=== PATIENT | female | born 1960 | race Caucasian/White ===

== ENCOUNTER 2018-06-16 06:44 | Emergency (ER) | payer BC ==
--- NOTE | 2018-06-16 07:40 | ER ---
Nurse's Notes [facility] Name: Yoly Vanessa Age: 58 yrs Sex: Female : 1960 Arrival Date: 06/16/2018 Time: 06:56 Bed 5 Private MD: Diagnosis: Radiculopathy, cervical region Presentation: 06/16 07:08 Presenting complaint: Patient states: L shoulder pain that began 1.5 weeks ago. Denies ss injury. Pt states, "I've had an upper respiratory infection, and I think I pulled something from coughing, I don't know, but the muscle relaxer and steroids are not working." ROM and CMS intact. Transition of care: patient was not received from another setting of care. Onset of symptoms was June 05, 2018. Risk Assessment: Do you want to hurt yourself or someone else? Patient reports no desire to harm self or others. Initial Sepsis Screen: Does the patient meet any 2 criteria? No. Patient's initial sepsis screen is negative. Does the patient have a suspected source of infection? No. Patient's initial sepsis screen is negative. Note Pt reports that pain is aggravated by cold weather. Care prior to arrival: None. 07:08 Method Of Arrival: Ambulatory ss 07:08 Acuity: MEHDI 3 ss Historical: - Allergies: 07:10 No Known Allergies; ss - PMHx: 07:10 COPD; Diabetes - IDDM; ss - PSHx: 07:10 Cholecystectomy; Pt believes her appendix may have been removed, but is unsure; ss - Immunization history:: Adult Immunizations unknown, Flu vaccine is not up to date. - Social history:: Smoking status: Patient uses tobacco products, smokes one pack cigarettes per day. - Ebola Screening: : Patient denies exposure to infectious person Patient denies travel to an Ebola-affected area in the 21 days before illness onset. Screenin:17 Abuse screen: Denies threats or abuse. Nutritional screening: No deficits noted. ca1 Tuberculosis screening: No symptoms or risk factors identified. Fall Risk None identified. Assessment: 07:16 General: Appears in no apparent distress. comfortable, Behavior is calm, cooperative. ca1 07:16 Pain: Complains of pain in left shoulder Pain does not radiate. Pain currently is 10 ca1 out of 10 on a pain scale. Quality of pain is described as throbbing, Pain began 1.5 days ago. Is continuous. 07:16 Neuro: Level of Consciousness is awake, alert, obeys commands, Oriented to person, ca1 place, time, situation. Cardiovascular: Heart tones S1 S2 present. Respiratory: Airway is patent Trachea midline Respiratory effort is even, unlabored, Respiratory pattern is regular, symmetrical, Breath sounds are clear bilaterally. GI: Abdomen is round Bowel sounds present X 4 quads. Abd is soft and non tender X 4 quads. : No signs and/or symptoms were reported regarding the genitourinary system. EENT:. Derm: Skin is pink, warm \\T\\ dry. 08:02 Reassessment: Patient and/or family updated on plan of care and expected duration. Pain ca1 level reassessed. Patient is alert, oriented x 3, equal unlabored respirations, skin warm/dry/pink. Reassessment: Patient appears in no apparent distress at this time. Patient still complains of pain and states, "I still feel a throbbing pain at my left shoulder, the medication provided a little relief but I can still feel the pain". . Vital Signs: 07:10 BP 132 / 62; Pulse 66; Resp 17; Temp 97.9(O); Pulse Ox 98% on R/A; Weight 81.65 kg; ss Height 5 ft. 4 in. (162.56 cm); Pain 10/10; 07:54 BP 128 / 105; Pulse 70; Resp 19; Pulse Ox 96% on R/A; Pain 10/10; ca1 07:10 Body Mass Index 30.90 (81.65 kg, 162.56 cm) ED Course: 06:56 Patient arrived in ED. ag3 07:00 Maye Dasilva FNP-C is PHCP. snw 07:00 Jose Bolaños MD is Attending Physician. snw 07:10 Triage completed. ss 07:10 Arm band placed on right wrist. ss 07:20 Bed in low position. Call light in reach. ca1 08:06 Jennifer Taylor, RN is Primary Nurse. ca1 08:07 No provider procedures requiring assistance completed. Patient did not have IV access ca1 during this emergency room visit. Administered Medications: 07:45 Drug: fentaNYL (PF) 50 mcg Route: IM; Site: right deltoid; ca1 08:26 Follow up: Response: No adverse reaction ca1 07:46 Drug: Neurontin 300 mg Route: PO; ca1 08:26 Follow up: Response: No adverse reaction ca1 Outcome: 07:39 Discharge ordered by MD. mosquera 08:05 Discharged to home ambulatory. ca1 08:05 Condition: stable 08:05 Discharge instructions given to patient, Instructed on discharge instructions, follow up and referral plans. medication usage, Demonstrated understanding of instructions, follow-up care, medications, Prescriptions given X 1. 08:33 Patient left the ED. ca1 Signatures: Maye Dasilva, FACILITIES FLIGHT CHECK PILOT-C FACILITIES FLIGHT CHECK PILOT-Csnw Jennifer Simpson, MOJGAN RN ss Ella Arthur ag3 Jennifer Taylor RN RN ca1 Corrections: (The following items were deleted from the chart) 08:05 07:16 Pain: ca1 ca1 08:06 07:16 Pain: Complains of pain in left shoulder Pain does not radiate. Pain currently is ca1 10 out of 10 on a pain scale. Quality of pain is described as throbbing, Pain began 1.5 days ago. Is continuous, ca1
--- NOTE | 2018-06-16 07:40 | EDPHYS ---
Physician Documentation [facility] Name: Yoly Vanessa Age: 58 yrs Sex: Female : 1960 Arrival Date: 06/16/2018 Time: 06:56 Bed 5 Private MD: ED Physician Jose Bolaños HPI: 06/16 07:36 This 58 yrs old Female presents to ER via Ambulatory with complaints of snw Shoulder Pain. 07:36 The patient or guardian complains of pain, that is acute. left shoulder with shooting, snw burning pain in left elbow. Context: The problem was sustained at an unknown site, resulted from an unknown reason, The patient reports no decreased range of motion. The patient reports no obvious deformity. Onset: The symptoms/episode began/occurred gradually, 3 week(s) ago, and became worse and became persistent. Associated signs and symptoms: Pertinent positives: burning. Severity of symptoms: At their worst the symptoms were severe. Treatment prior to arrival includes: pt has seen PCP and Urgent care, has tried anti-inflam (both steroidal and non-steroidal), muscle relaxers. It is unknown whether or not the patient has had similar symptoms in the past. The patient has been recently seen by a physician: the patient's primary care provider, Dr. Workman and . Historical: - Allergies: 07:10 No Known Allergies; ss - PMHx: 07:10 COPD; Diabetes - IDDM; ss - PSHx: 07:10 Cholecystectomy; Pt believes her appendix may have been removed, but is unsure; ss - Immunization history:: Adult Immunizations unknown, Flu vaccine is not up to date. - Social history:: Smoking status: Patient uses tobacco products, smokes one pack cigarettes per day. - Ebola Screening: : Patient denies exposure to infectious person Patient denies travel to an Ebola-affected area in the 21 days before illness onset. ROS: 07:33 Constitutional: Negative for fever, chills, and weight loss, Eyes: Negative for injury, snw pain, redness, and discharge, ENT: Negative for injury, pain, and discharge, Neck: Negative for injury, pain, and swelling, Cardiovascular: Negative for chest pain, palpitations, and edema, Respiratory: Negative for shortness of breath, cough, wheezing, and pleuritic chest pain, Abdomen/GI: Negative for abdominal pain, nausea, vomiting, diarrhea, and constipation, Back: Negative for injury and pain, : Negative for injury, bleeding, discharge, and swelling, Skin: Negative for injury, rash, and discoloration, Neuro: Negative for headache, weakness, numbness, tingling, and seizure. 07:33 MS/extremity: Positive for pain, paresthesias, of the pain in left shoulder with significant burning pain in left elbow. Exam: 07:33 Head/Face: Normocephalic, atraumatic. Eyes: Pupils equal round and reactive to light, snw extra-ocular motions intact. Lids and lashes normal. Conjunctiva and sclera are non-icteric and not injected. Cornea within normal limits. Periorbital areas with no swelling, redness, or edema. ENT: Nares patent. No nasal discharge, no septal abnormalities noted. Tympanic membranes are normal and external auditory canals are clear. Oropharynx with no redness, swelling, or masses, exudates, or evidence of obstruction, uvula midline. Mucous membranes moist. Neck: Trachea midline, no thyromegaly or masses palpated, and no cervical lymphadenopathy. Supple, full range of motion without nuchal rigidity, or vertebral point tenderness. No Meningismus. Chest/axilla: Normal chest wall appearance and motion. Nontender with no deformity. No lesions are appreciated. Cardiovascular: Regular rate and rhythm with a normal S1 and S2. No gallops, murmurs, or rubs. Normal PMI, no JVD. No pulse deficits. Respiratory: Lungs have equal breath sounds bilaterally, clear to auscultation and percussion. No rales, rhonchi or wheezes noted. No increased work of breathing, no retractions or nasal flaring. Abdomen/GI: Soft, non-tender, with normal bowel sounds. No distension or tympany. No guarding or rebound. No evidence of tenderness throughout. Back: No spinal tenderness. No costovertebral tenderness. Full range of motion. Skin: Warm, dry with normal turgor. Normal color with no rashes, no lesions, and no evidence of cellulitis. Neuro: Awake and alert, GCS 15, oriented to person, place, time, and situation. Cranial nerves II-XII grossly intact. Motor strength 5/5 in all extremities. Sensory grossly intact. Cerebellar exam normal. Normal gait. Psych: Awake, alert, with orientation to person, place and time. Behavior, mood, and affect are within normal limits. 07:33 Constitutional: The patient appears alert, awake, anxious. 07:33 Musculoskeletal/extremity: Extremities: grossly normal except: noted in the left elbow: pain, ROM: no acute changes, Circulation is intact in all extremities. Sensation intact. pt unable to sit still, continues to move her elbow in attempt to decrease pain Vital Signs: 07:10 BP 132 / 62; Pulse 66; Resp 17; Temp 97.9(O); Pulse Ox 98% on R/A; Weight 81.65 kg; ss Height 5 ft. 4 in. (162.56 cm); Pain 10/10; 07:54 BP 128 / 105; Pulse 70; Resp 19; Pulse Ox 96% on R/A; Pain 10/10; ca1 07:10 Body Mass Index 30.90 (81.65 kg, 162.56 cm) ss MDM: 07:01 Patient medically screened. snw 07:40 Data reviewed: vital signs, nurses notes. Data interpreted: Pulse oximetry: on room air snw is 98 %. Interpretation: normal. Counseling: I had a detailed discussion with the patient and/or guardian regarding: the historical points, exam findings, and any diagnostic results supporting the discharge/admit diagnosis, the need for outpatient follow up, to return to the emergency department if symptoms worsen or persist or if there are any questions or concerns that arise at home. Special discussion: Based on the history and exam findings, there is no indication for further emergent testing or inpatient evaluation. I discussed with the patient/guardian the need to see the neurologist for further evaluation of the symptoms. I discussed with the patient/guardian the need to see the primary care provider for further evaluation of the symptoms. Administered Medications: 07:45 Drug: fentaNYL (PF) 50 mcg Route: IM; Site: right deltoid; ca1 08:26 Follow up: Response: No adverse reaction ca1 07:46 Drug: Neurontin 300 mg Route: PO; ca1 08:26 Follow up: Response: No adverse reaction ca1 Disposition: 06/16/18 07:39 Discharged to Home. Impression: Radiculopathy, cervical region. - Condition is Stable. - Discharge Instructions: Cervical Radiculopathy, Neuropathic Pain, Cryotherapy, Heat Therapy. - Prescriptions for Tylenol- Codeine #3 300-30 mg Oral Tablet - take 2 tablets by ORAL route every 6 hours As needed; 20 tablet. - Medication Reconciliation Form, Thank You Letter, Antibiotic Education, Prescription Opioid Use, Work release form form. - Follow up: Private Physician; When: 1 - 2 days; Reason: Recheck today's complaints, Continuance of care, Re-evaluation by your physician. Follow up: Emergency Department; When: As needed; Reason: Worsening of condition. - Problem is new. - Symptoms have worsened. Addendum: 06/18/2018 21:00 Co-signature as Attending Physician, Jose Bolaños MD Available for consultation at p s1 all times . Signatures: Maye Dasilva, SUPERINTENDENT CAR CONSTRUCTION-C SUPERINTENDENT CAR CONSTRUCTION-Csnw Jennifer Simpson, MOJGAN RN ss Jose Bolaños MD MD ps1 Jennifer Taylor RN RN ca1 Corrections: (The following items were deleted from the chart) 06/16 08:33 07:39 06/16/2018 07:39 Discharged to Home. Impression: Radiculopathy, cervical region. ca1 Condition is Stable. Forms are Medication Reconciliation Form, Thank You Letter, Antibiotic Education, Prescription Opioid Use. Follow up: Private Physician; When: 1 - 2 days; Reason: Recheck today's complaints, Continuance of care, Re-evaluation by your physician. Follow up: Emergency Department; When: As needed; Reason: Worsening of condition. Problem is new. Symptoms have worsened. snw
[2018-06-16] MEDS ORDERED: GABAPENTIN 300 MG CAP ONE (07:49)
[2018-06-16] MEDS ORDERED: FENTANYL CITR 100 MCG/2 ML ONE (07:50)
== END 2018-06-16 08:33 | disposition home or self-care (01) ==
LOC: ER 06:44
DX: M54.12 Radiculopathy, cervical region (principal); F17.210 Nicotine dependence, cigarettes, uncomplicated
CPT/HCPCS: 96372; 99283; J3010

== ENCOUNTER 2019-03-01 16:27 | Emergency (ER) | payer BC ==
[2019-03-01] MEDS ORDERED: MECLIZINE HCL 12.5 MG TAB ONE (18:26)
[2019-03-01] MEDS ORDERED: NA CHLORIDE 0.9% 500 ML ONE (18:26)
[2019-03-01 18:34] LABS: Absolute Lymphocytes (CBC) 2.2 K/uL (0.7-4.9); Basophils % 0.5 % (0-1.3); Hematocrit 31.7 % (36.0-45.0); Lymphocytes % 22.6 % (15.3-44.8); MPV 8.5 fL (7.6-11.3); RBC Red Blood Cell Count 3.32 M/uL (3.86-4.86)
[2019-03-01 18:35] LABS: Protime INR 0.92
[2019-03-01 18:44] LABS: ALT/SGPT 29 U/L (12-78); AST/SGOT 18 U/L (15-37); Albumin 3.8 g/dL (3.4-5.0); Alkaline Phosphatase 109 U/L (45-117); BUN Blood Urea Nitrogen 13 mg/dL (7-18); Bicarbonate 27 mmol/L (21-32); Bilirubin Direct < 0.1 mg/dL (0-0.2); Bilirubin Total 0.2 mg/dL (0.2-1.0); Glucose Level 64 mg/dL (74-106); Magnesium 2.3 mg/dL (1.8-2.4); NT PRO-BNP 121 pg/mL (<125); Potassium 3.8 mmol/L (3.5-5.1); Protein, Total 7.4 g/dL (6.4-8.2); Sodium Level 143 mmol/L (136-145); Troponin (Emerg Dept Use Only) < 0.02 ng/mL (0.0-0.045)
--- NOTE | 2019-03-01 19:28 | RAD REPORT ---
EXAM DESCRIPTION: RAD - Chest Single View - 03/01/2019 6:33 pm CLINICAL HISTORY: Weakness, dizziness, shortness of breath COMPARISON: March 2016 TECHNIQUE: AP portable chest image was obtained 1822 hours . FINDINGS: No focal lung parenchymal process. Interstitial pattern matches comparison. Small granulom as are present and stable. Calcified breast implant capsules are similar to comparison. Heart and vas culature are normal. No measurable pleural effusion and no pneumothorax. No acute bony abnormality se en. No acute aortic findings suspected. IMPRESSION: No acute cardiopulmonary process. No significant interval change.
--- NOTE | 2019-03-01 19:42 | ER ---
Nurse's Notes [facility] Name: Yoly Vanessa Age: 58 yrs Sex: Female : 1960 Arrival Date: 03/01/2019 Time: 16:31 Bed 17 Private MD: Diagnosis: Dizziness and giddiness;Anemia in chronic diseases classified elsewhere Presentation: 03/01 16:51 Presenting complaint: Patient states: I have been feeling dizzy since Monday but also la1 very fatigued. Transition of care: patient was not received from another setting of care. Onset of symptoms was March 01, 2019. Risk Assessment: Do you want to hurt yourself or someone else? Patient reports no desire to harm self or others. Initial Sepsis Screen: Does the patient meet any 2 criteria? No. Patient's initial sepsis screen is negative. Does the patient have a suspected source of infection? No. Patient's initial sepsis screen is negative. Care prior to arrival: None. 16:51 Method Of Arrival: Ambulatory la1 16:51 Acuity: MEHDI 3 la1 Historical: - Allergies: 16:52 No Known Allergies; la1 - PMHx: 16:52 Diabetes - IDDM; COPD; la1 - Immunization history:: Adult Immunizations up to date. - Social history:: Smoking status: Patient uses tobacco products, smokes one pack cigarettes per day. - Ebola Screening: : No symptoms or risks identified at this time. Screenin:00 Abuse screen: Denies threats or abuse. Nutritional screening: No deficits noted. em Tuberculosis screening: No symptoms or risk factors identified. Fall Risk None identified. Assessment: 18:00 General: Appears in no apparent distress. comfortable, Behavior is calm, cooperative, em Denies fever. Pain: Denies pain. Neuro: Level of Consciousness is awake, alert, obeys commands, Oriented to person, place, time, situation, Reports dizziness, since Monday dizziness off and on since Monday . Denies weakness blurred vision headache. Cardiovascular: Capillary refill < 3 seconds Patient's skin is warm and dry. Respiratory: Airway is patent Respiratory effort is even, unlabored, Respiratory pattern is regular, symmetrical. GI: Abdomen is flat, Patient currently denies nausea, vomiting. Derm: Skin is intact, is healthy with good turgor, Skin is pink, warm \T\ dry. Musculoskeletal: Capillary refill < 3 seconds, Range of motion: intact in all extremities. 18:10 General: The previous assessment is accurate, call light remains within reach. . ss 18:30 Reassessment: currently refuses meclizine since pt is not symptomatic. em 19:15 Reassessment: Patient appears in no apparent distress at this time. Patient and/or cc3 family updated on plan of care and expected duration. Pain level reassessed. Patient is alert, oriented x 3, equal unlabored respirations, skin warm/dry/pink. Received this female patient from morning shift [facility] as a case of dizziness. Patient refuses Meclizine and doesn't feel dizzy and said she feels better, IRMA De Leon informed. With IV cannula gauge 22 at the right ACV with ongoing IVF bolus of NS 500 mL about to be completed. Patient denies pain at this time. General: Appears in no apparent distress. comfortable, Behavior is calm, cooperative, appropriate for age. Pain: Denies pain. Neuro: Level of Consciousness is awake, alert, obeys commands, Oriented to person, place, time, situation, Appropriate for age. Cardiovascular: Denies chest pain, Capillary refill < 3 seconds Patient's skin is warm and dry. Respiratory: Airway is patent Respiratory effort is even, unlabored, Respiratory pattern is regular, symmetrical. GI: Abdomen is round non-distended. : No signs and/or symptoms were reported regarding the genitourinary system. EENT: No signs and/or symptoms were reported regarding the EENT system. Derm: Skin is intact, is healthy with good turgor, Skin is pink, warm \T\ dry. normal. Musculoskeletal: Circulation, motion, and sensation intact. Range of motion: intact in all extremities. 20:00 Reassessment: Patient appears in no apparent distress at this time. Patient and/or cc3 family updated on plan of care and expected duration. Pain level reassessed. Patient is alert, oriented x 3, equal unlabored respirations, skin warm/dry/pink. IRMA De Leon discharged the patient home, no prescription given. IRMA De Leon said no need for the urine sample. IV cannula removed and patient left ER vitally stable and ambulatory with her . No valuables left in the patient's room. Patient denies pain at this time. Patient states feeling better. Patient states symptoms have improved. Vital Signs: 16:52 BP 125 / 64; Pulse 66; Resp 16; Temp 97.9; Pulse Ox 98% ; Weight 81.65 kg; Height 5 ft. la1 3 in. (160.02 cm); 17:52 BP 122 / 66 Supine; Pulse 65; Resp 16; Pulse Ox 99% ; lt1 17:52 BP 123 / 63 Sitting; Pulse 65; lt1 17:52 BP 137 / 74 Standing; Pulse 75; lt1 19:40 BP 115 / 64; Pulse 62; Resp 16 S; Temp 98.8(O); Pulse Ox 98% on R/A; Pain 0/10; cc3 16:52 Body Mass Index 31.89 (81.65 kg, 160.02 cm) la1 ED Course: 16:31 Patient arrived in ED. mr 16:51 Triage completed. la1 16:52 Arm band placed on left wrist. la1 17:27 Abhi De Leon PA is PHCP. cp 17:27 Abhi Hogue MD is Attending Physician. cp 17:37 Jone Dumont LVN is Primary Nurse. em 18:00 Patient has correct armband on for positive identification. Bed in low position. Call em light in reach. Pulse ox on. NIBP on. 18:08 Initial lab(s) drawn, by me, sent to lab. Inserted saline lock: 22 gauge in right dh3 antecubital area, using aseptic technique. Blood collected. 18:43 XRAY Chest (1 view) In Process Unspecified. EDMS 20:00 No provider procedures requiring assistance completed. IV discontinued, intact, cc3 bleeding controlled, No redness/swelling at site. Pressure dressing applied. Administered Medications: 18:32 Drug: NS 0.9% 500 ml Route: IV; Rate: bolus; Site: right antecubital; em 20:00 Follow up: Response: No adverse reaction; IV Status: Completed infusion; IV Intake: cc3 500ml 19:28 Not Given (Patient Refused): Meclizine 25 mg PO once cc3 Intake: 20:00 IV: 500ml; Total: 500ml. cc3 Outcome: 19:40 Discharge ordered by . cp 20:00 Discharged to home ambulatory, with family. cc3 20:00 Condition: stable 20:00 Discharge instructions given to patient, family, Instructed on discharge instructions, follow up and referral plans. Demonstrated understanding of instructions, follow-up care. 20:04 Patient left the ED. cc3 Signatures: Dispatcher [employer] Hafsa Chery, Jone, NURSE EMERGENCY NURSE EMERGENCY em Jennifer Simpson, RN RN ss Tyrell Gomes RN RN la1 Abhi De Leon, Priscilla Dey cp 3 Amber Yeh cc3 Coyle, Janessa lt1 Corrections: (The following items were deleted from the chart) 20:16 19:15 Reassessment: Patient appears in no apparent distress at this time. Patient cc3 and/or family updated on plan of care and expected duration. Pain level reassessed. Patient is alert, oriented x 3, equal unlabored respirations, skin warm/dry/pink. Received this female patient from morning shift NURSE EMERGENCY [facility] as a case of dizziness. Patient refuses Meclizine and doesn't feel dizzy and said she feels better, IRMA De Leon informed. Patient denies pain at this time. cc3
--- NOTE | 2019-03-01 19:42 | EDPHYS ---
Physician Documentation [facility] Name: Yoly Vanessa Age: 58 yrs Sex: Female : 1960 Arrival Date: 03/01/2019 Time: 16:31 Bed 17 Private MD: ED Physician Abhi Hogue HPI: 03/01 18:01 This 58 yrs old Female presents to ER via Ambulatory with complaints of cp Dizziness. 18:01 The patient presents with lightheadedness. cp 18:01 Onset: The symptoms/episode began/occurred 3 day(s) ago. Context: just prior to the cp episode the patient experienced no apparent symptoms. Associated signs and symptoms: Pertinent positives: fatigue, Pertinent negatives: abdominal pain, blurred vision, chest pain, focal weakness, head injury, near-syncope, numbness, palpitations, syncope, vomiting. Severity of symptoms: in the emergency department the symptoms have improved moderately. Patient's baseline: Neuro: alert and fully oriented, Motor: no deficits, Ambulation: walks without assistance, Speech: normal. Historical: - Allergies: 16:52 No Known Allergies; la1 - PMHx: 16:52 Diabetes - IDDM; COPD; la1 - Immunization history:: Adult Immunizations up to date. - Social history:: Smoking status: Patient uses tobacco products, smokes one pack cigarettes per day. - Ebola Screening: : No symptoms or risks identified at this time. ROS: 18:05 Eyes: Negative for injury, pain, redness, and discharge. cp 18:05 Constitutional: Positive for fatigue, Negative for body aches, poor PO intake, weight loss. 18:05 ENT: Negative for drainage from ear(s), ear pain, sore throat, difficulty swallowing, difficulty handling secretions. 18:05 Cardiovascular: Negative for chest pain, edema, palpitations. 18:05 Respiratory: Negative for cough, shortness of breath, wheezing. 18:05 Abdomen/GI: Negative for abdominal pain, nausea, vomiting, and diarrhea, constipation, black/tarry stool, rectal bleeding. 18:05 Back: Negative for pain at rest, pain with movement. 18:05 Skin: Negative for cellulitis, rash. 18:05 Neuro: Positive for dizziness, Negative for altered mental status, loss of consciousness, numbness, speech changes, syncope, weakness. 18:05 All other systems are negative. Exam: 17:15 ECG was reviewed by the Attending Physician. cp 18:15 Constitutional: The patient appears in no acute distress, alert, awake, cp non-diaphoretic, non-toxic, well developed, well nourished. 18:15 Head/Face: Normocephalic, atraumatic. Eyes: Pupils equal round and reactive to light, cp extra-ocular motions intact. Lids and lashes normal. Conjunctiva and sclera are non-icteric and not injected. Cornea within normal limits. Periorbital areas with no swelling, redness, or edema. ENT: Nares patent. No nasal discharge, no septal abnormalities noted. Tympanic membranes are normal and external auditory canals are clear. Oropharynx with no redness, swelling, or masses, exudates, or evidence of obstruction, uvula midline. Mucous membranes moist. 18:15 Neck: ROM/movement: is normal, is supple, without pain, no range of motions limitations, no nuchal rigidity. 18:15 Chest/axilla: Inspection: normal, Palpation: is normal, no crepitus, no tenderness. 18:15 Cardiovascular: Rate: normal, Rhythm: regular, Heart sounds: murmur, not appreciated, Edema: is not appreciated, JVD: is not appreciated. 18:15 Respiratory: the patient does not display signs of respiratory distress, Respirations: normal, no use of accessory muscles, no retractions, no splinting, no tachypnea, labored breathing, is not present, Breath sounds: are clear throughout, no decreased breath sounds, no stridor, no wheezing. 18:15 Abdomen/GI: Inspection: abdomen appears normal, Palpation: abdomen is soft and non-tender, in all quadrants. 18:15 Back: pain, is absent, ROM is normal. 18:15 Skin: no rash present. 18:15 Neuro: Orientation: to person, place \T\ time. Mentation: is normal, Cerebellar function: is grossly normal, Motor: moves all fours, strength is normal, Sensation: is normal, Gait: is steady, at a normal pace, without difficulty. Vital Signs: 16:52 BP 125 / 64; Pulse 66; Resp 16; Temp 97.9; Pulse Ox 98% ; Weight 81.65 kg; Height 5 ft. la1 3 in. (160.02 cm); 17:52 BP 122 / 66 Supine; Pulse 65; Resp 16; Pulse Ox 99% ; lt1 17:52 BP 123 / 63 Sitting; Pulse 65; lt1 17:52 BP 137 / 74 Standing; Pulse 75; lt1 19:40 BP 115 / 64; Pulse 62; Resp 16 S; Temp 98.8(O); Pulse Ox 98% on R/A; Pain 0/10; cc3 16:52 Body Mass Index 31.89 (81.65 kg, 160.02 cm) la1 MDM: 17:28 Patient medically screened. jackie 18:00 Differential diagnosis: cardiac arrhythmia, CVA, GI bleed, hypovolemia, idiopathic cp dizziness, TIA. 19:35 Refusal of service: The patient/guardian displays adequate decision making capability cp and despite a detailed discussion of alternatives, benefits, risks, and consequences refuses: CT Scan, of head. 19:40 Data reviewed: vital signs, nurses notes, lab test result(s), EKG, radiologic studies, cp plain films. 19:40 Test interpretation: by ED physician or midlevel provider: ECG, plain radiologic cp studies. Counseling: I had a detailed discussion with the patient and/or guardian regarding: the historical points, exam findings, and any diagnostic results supporting the discharge/admit diagnosis, lab results, radiology results, the need for outpatient follow up, a family practitioner, to return to the emergency department if symptoms worsen or persist or if there are any questions or concerns that arise at home. 03/01 17:59 Order name: Basic Metabolic Panel; Complete Time: 19:10 cp 03/01 19:10 Interpretation: Normal except: CL 108; GLUC 64; GFR 75. cp 03/01 17:59 Order name: CBC with Diff; Complete Time: 18:42 cp 03/01 18:42 Interpretation: Normal except: RBC 3.32; HGB 10.6; HCT 31.7; PLT 411. cp 03/01 17:59 Order name: LFT's; Complete Time: 19:10 cp 03/01 19:11 Interpretation: Normal except: GLOB 3.6. cp 03/01 17:59 Order name: Magnesium; Complete Time: 19:10 cp 03/01 17:59 Order name: NT PRO-BNP; Complete Time: 19:10 cp 03/01 17:59 Order name: PT-INR; Complete Time: 18:42 cp 03/01 17:28 Order name: Orthostatics; Complete Time: 17:53 cp 03/01 17:59 Order name: Troponin (emerg Dept Use Only); Complete Time: 19:10 cp 03/01 17:59 Order name: XRAY Chest (1 view); Complete Time: 19:38 cp 03/01 19:38 Interpretation: Report review. cp 03/01 17:59 Order name: EKG; Complete Time: 18:01 cp 03/01 17:59 Order name: Cardiac monitoring; Complete Time: 18:13 cp 03/01 17:59 Order name: EKG - Nurse/Tech; Complete Time: 18:13 cp 03/01 17:59 Order name: IV Saline Lock; Complete Time: 18:12 cp 03/01 17:59 Order name: Labs collected and sent; Complete Time: 18:12 cp 03/01 17:59 Order name: O2 Per Protocol; Complete Time: 18:12 cp 03/01 17:59 Order name: O2 Sat Monitoring; Complete Time: 18:12 cp EC:15 Rate is 68 beats/min. Rhythm is regular. AL interval is normal. QRS interval is normal. cp QT interval is normal. T waves are Inverted in lead aVL. Interpreted by me. Reviewed by me. Administered Medications: 18:32 Drug: NS 0.9% 500 ml Route: IV; Rate: bolus; Site: right antecubital; em 20:00 Follow up: Response: No adverse reaction; IV Status: Completed infusion; IV Intake: cc3 500ml 19:28 Not Given (Patient Refused): Meclizine 25 mg PO once cc3 Disposition: 03/02 09:15 Co-signature as Attending Physician, Abhi Hogue MD I agree with the assessment and jackie plan of care. Disposition: 03/01/19 19:40 Discharged to Home. Impression: Dizziness and giddiness, Anemia in chronic diseases classified elsewhere. - Condition is Stable. - Discharge Instructions: Anemia, Nonspecific, Dizziness. - Medication Reconciliation Form, Thank You Letter, Antibiotic Education, Prescription Opioid Use form. - Follow up: Private Physician; When: 2 - 3 days; Reason: Recheck today's complaints. - Problem is new. - Symptoms have improved. Signatures: Dispatcher [employer] Abhi Schulz MD MD cha Munoz, Edgar [employer] SALESPERSON [employer] SALESPERSON Tyrell Hatfield RN RN la1 Abhi De Leon PA PA Amber Joyce cc3 Corrections: (The following items were deleted from the chart) 03/01 20:03 17:59 Urine Dipstick-Ancillary ordered. cp cc3 20:04 19:40 03/01/2019 19:40 Discharged to Home. Impression: Dizziness and giddiness; Anemia cc3 in chronic diseases classified elsewhere. Condition is Stable. Forms are Medication Reconciliation Form, Thank You Letter, Antibiotic Education, Prescription Opioid Use. Follow up: Private Physician; When: 2 - 3 days; Reason: Recheck today's complaints. Problem is new. Symptoms have improved. cp
--- NOTE | 2019-03-02 15:48 | EKG ---
Test Date: 2019-03-01 Test Time: 17:07:57 Test Inspection Engineer: MONIKA MEASUREMENT RESULTS: Intervals: Rate: 68 NH: 150 QRSD: 78 QT: 430 QTc: 457 [place]: P: 78 NH: 150 QRS: 0 T: 75 INTERPRETIVE STATEMENTS: Normal sinus rhythm ST abnormality, possible digitalis effect Abnormal ECG No previous ECG available for comparison Electronically Signed On 03-02-19 15:47:14 CDT by Noé Crespo
== END 2019-03-01 20:04 | disposition home or self-care (01) ==
LOC: ER 16:27
DX: D63.8 Anemia in other chronic diseases classified elsewhere (principal); F17.210 Nicotine dependence, cigarettes, uncomplicated
CPT/HCPCS: 36415; 71045; 80048; 80076; 83735; 83880; 84484; 85025; 85610; 93005; 96360; 99284

== ENCOUNTER 2021-08-05 20:33 | Inpatient (IN) | payer BC ==
--- OUTSIDE RECORDS SUMMARY | 2021-08-05 20:36 | XMS REPORT | Continuity of Care Document ---
:1960 Author Organization [facility] t Address [address] [place] [address] Care Team Providers Name Role Phone Nathaly Attending Clinician Unavailable Foster Attending Clinician Unavailable Barney Attending Clinician Unavailable Problems This patient has no known problems. Allergies, Adverse Reactions, Alerts This patient has no known allergies or adverse reactions. Medications This patient has no known medications. Procedures This patient has no known procedures. Encounters Start End Encounter Admission Attending Care Care Encounter Source Date/Time Date/Time Type Type Clinicians Facility Department ID 2021-08-[address] [facility] [place] [id number] [facility] 2021-08-[address] [facility] [place] [id number] [facility] 2021-08-[address] [facility] [id number] [facility] [facility] 13:34:50 [place] [id number] [facility] 2021-08-[address] [facility] [id number] [facility] 13[facility]34:13 [place] [id number] [facility] 2021[facility]08-[address] [facility] [id number] 13:33:41 [place] [id number] [facility] 2021-08-[address] [facility] [place] [id number] [facility] 2021-08-04 Outpatient Foster, [facility] [place] [id number] [facility] 2021-08-04 [facility] [id number] [facility] 2021-08-04 Out[facility] Barney, [facility] [place] [id number] [facility] 2021-08-04 Outpatient Barney [facility] [place] [id number] [facility] 2021-08-04 [facility] 11:[facility] [place] [id number] [facility] 2021-08-04 [facility] 10[facility]58 [place] [id number] [facility] 2021-07-30 2021-07-30 ambulatory [facility] [id number] [facility] 2021-07-29 2021-07-29 ambulatory [facility] [id number] [facility] 2021-07-22 2021-07-22 ambulatory [facility] [id number] [facility] 2021-07-12 2021-07-12 ambulatory [facility] [id number] [facility] 2021-06-28 2021-06-28 ambulatory [facility] [id number] [facility] Results This patient has no known results.
[2021-08-05] MEDS ORDERED: NA CHLORIDE 0.9% 1,000 ML ONE (22:36)
[2021-08-05 22:58] LABS: Absolute Lymphocytes (CBC) 1.3 K/uL (0.7-4.9); Lymphocytes % 13.3 % (15.3-44.8); MPV 7.1 fL (7.6-11.3); RBC Red Blood Cell Count 1.88 M/uL (3.86-4.86)
[2021-08-05 23:08] LABS: Hematocrit 18.6 % (36.0-45.0)
[2021-08-05 23:11] LABS: Protime INR 1.03
[2021-08-05 23:18] LABS: Arterial Blood Carboxyhemoglob 4.1 % (0-1.5); Blood Gas Oxyhemoglobin 92.7 % (94-97); Blood O2 Saturation 97.8 % (92-98.5)
[2021-08-05 23:21] LABS: ALT/SGPT 31 U/L (12-78); AST/SGOT 23 U/L (15-37); Albumin 3.2 g/dL (3.4-5.0); Alkaline Phosphatase 125 U/L (45-117); BUN Blood Urea Nitrogen 10 mg/dL (7-18); Bicarbonate 25 mmol/L (21-32); Bilirubin Direct < 0.1 mg/dL (0-0.2); Bilirubin Total 0.2 mg/dL (0.2-1.0); Glucose Level 73 mg/dL (74-106); Magnesium 2.3 mg/dL (1.8-2.4); NT PRO-BNP 648 pg/mL (<125); Potassium 3.7 mmol/L (3.5-5.1); Protein, Total 6.4 g/dL (6.4-8.2); Sodium Level 138 mmol/L (136-145)
[2021-08-05 23:29] LABS: SARS-COV-2 RT PCR NEGATIVE (NEGATIVE)
[2021-08-05 23:47] LABS: Urine Blood Negative (Negative); Urine Glucose Negative (Negative); Urine Protein Negative (Negative); Urine Specific Gravity <=1.005 (1.005-1.030)
[2021-08-06] MEDS ORDERED: NA CHLORIDE 0.9% 250 ML ONE ×2 (02:26→06:32)
--- NOTE | 2021-08-06 07:10 | ER ---
Nurse's Notes [facility] Name: Yoly Vanessa Age: 61 yrs Sex: Female : 1960 Arrival Date: 08/05/2021 Time: 20:37 Bed 3 Private MD: Diagnosis: Acute exacerbation COPD. Anemia. Colitis Presentation: 08/05 20:53 Chief complaint: Patient states: I think I got the bronchitis and I can't breath if I vc1 walk from here to there I get real dizzy. I haven't been able to sleep because when I lay down I go to coughing and I can't catch my breath. Coronavirus screen: Vaccine status: Patient reports receiving the 2nd dose of the covid vaccine. Unsure of brand cough unrelated to allergies, difficulty breathing, fatigue, shortness of breath, Client presents with at least one sign or symptom that may indicate coronavirus-19. Standard/surgical mask placed on the client. Provider contacted for isolation considerations. Ebola Screen: No symptoms or risks identified at this time. Initial Sepsis Screen: Does the patient meet any 2 criteria? RR > 20 per min. HR > 90 bpm. Yes Does the patient have a suspected source of infection? No. Patient's initial sepsis screen is negative. Risk Assessment: Do you want to hurt yourself or someone else? Patient reports no desire to harm self or others. Onset of symptoms is unknown. 20:53 Method Of Arrival: Ambulatory vc1 20:53 Acuity: MEHDI 3 vc1 Triage Assessment: 20:57 General: Appears in no apparent distress. uncomfortable, Behavior is cooperative, vc1 appropriate for age, anxious. Pain: Denies pain. Respiratory: Reports shortness of breath cough that is labored breathing Onset: The symptoms/episode began/occurred gradually, the patient has mild shortness of breath. Historical: - Allergies: 20:57 No Known Allergies; vc1 - Home Meds: 20:57 ipratropium and albuterol [Active]; amoxicillin-pot clavulanate 875-125 mg Oral tab vc1 [Active]; - PMHx: 20:57 COPD; Diabetes - IDDM; high cholesterol; Restless leg; vc1 - PSHx: 20:57 None; vc1 - Immunization history:: Adult Immunizations up to date, Client reports receiving the 2nd dose of the Covid vaccine, Flu vaccine is not up to date. - Social history:: Smoking status: Patient reports the use of cigarette tobacco products, smokes .25 packs per day. Screenin/28 00:53 Abuse screen: Denies threats or abuse. Denies injuries from another. Nutritional sm5 screening: No deficits noted. Tuberculosis screening: No symptoms or risk factors identified. Fall Risk No fall in past 12 months (0 pts). No secondary diagnosis (0 pts). IV access (20 points). Ambulatory Aid- None/Bed Rest/Nurse Assist (0 pts). Gait- Normal/Bed Rest/Wheelchair (0 pts) Mental Status- Oriented to own ability (0 pts). Total Nicholson Fall Scale indicates No Risk (0-24 pts). Assessment: 08/05 21:27 General: Appears in no apparent distress. Behavior is cooperative. Pain: Denies pain. sm5 Neuro: No deficits noted. Level of Consciousness is awake, alert, Oriented to person, place, time, situation. Cardiovascular: Capillary refill < 3 seconds Patient's skin is warm and dry. Rhythm is sinus rhythm. Respiratory: Airway is patent Trachea midline Respiratory effort is even, labored, Breath sounds are clear bilaterally. Derm: Skin is pale. 22:35 Reassessment: No changes from previously documented assessment. Patient and/or family sm5 updated on plan of care and expected duration. Pain level reassessed. 23:42 Reassessment: hemocult trace positive per Dr. Butcher. sm5 08/06 00:42 Reassessment: No changes from previously documented assessment. Patient and/or family mk updated on plan of care and expected duration. Pain level reassessed. 01:40 Reassessment: No changes from previously documented assessment. Patient and/or family mk updated on plan of care and expected duration. Pain level reassessed. 02:40 Reassessment: No changes from previously documented assessment. Patient and/or family mk updated on plan of care and expected duration. Pain level reassessed. 03:40 Reassessment: No changes from previously documented assessment. Patient and/or family mk updated on plan of care and expected duration. Pain level reassessed. 04:40 Reassessment: No changes from previously documented assessment. Patient and/or family mk updated on plan of care and expected duration. Pain level reassessed. 05:40 Reassessment: No changes from previously documented assessment. Patient and/or family mk updated on plan of care and expected duration. Pain level reassessed. 12:14 Reassessment: report called to floor-RN. Roxie jg9 Vital Signs: 08/05 20:53 BP 178 / 115; Pulse 103; Resp 24; Temp 98.1(TE); Pulse Ox 97% on R/A; Weight 81.65 kg; vc1 Height 5 ft. 3 in. (160.02 cm); Pain 0/10; 21:02 BP 139 / 54; vc1 22:00 BP 156 / 85; Pulse 115; Resp 20; Pulse Ox 100% on R/A; sm5 23:00 BP 110 / 80; Pulse 99; Resp 19; Pulse Ox 99% on R/A; sm5 08/06 00:00 BP 112 / 102; Pulse 102; Resp 19; Pulse Ox 98% on R/A; sm5 00:40 BP 124 / 71; Pulse 107; Resp 18; Pulse Ox 99% on R/A; mk 01:40 BP 136 / 74; Pulse 97; Resp 18; Pulse Ox 99% on R/A; mk 02:40 BP 144 / 78; Pulse 93; Resp 18; Pulse Ox 99% on R/A; mk 03:40 BP 143 / 58; Pulse 95; Resp 18; Pulse Ox 100% on R/A; mk 04:40 BP 127 / 77; Pulse 88; Resp 16; Pulse Ox 96% on R/A; mk 05:40 BP 143 / 86; Pulse 86; Resp 18; Pulse Ox 95% on R/A; mk 06:00 BP 139 / 89; Pulse 87; Resp 18; Temp 98.0; Pulse Ox 98% ; sf1 07:15 BP 127 / 84; Pulse 91; Resp 18; Temp 98.1; Pulse Ox 98% on R/A; jg9 07:45 BP 159 / 97; Pulse 79; Resp 17 S; Temp 98.2(O); Pulse Ox 100% ; jg9 08:15 BP 121 / 93; Pulse 90; Resp 18 S; Temp 98.0(O); Pulse Ox 99% on R/A; jg9 08:45 BP 124 / 80; Pulse 87; Resp 17 S; Pulse Ox 100% on R/A; jg9 09:15 BP 100 / 51; Pulse 90; Resp 18 S; Pulse Ox 99% on R/A; jg9 09:40 BP 159 / 92; Pulse 92; Resp 18; Temp 98.2(O); Pulse Ox 100% on R/A; jg9 10:30 BP 118 / 76; Pulse 96; Resp 18 S; Pulse Ox 100% ; jg9 11:20 BP 109 / 62; Pulse 93; Resp 18 S; Pulse Ox 97% ; jg9 08/05 20:53 Body Mass Index 31.89 (81.65 kg, 160.02 cm) vc1 ED Course: 08/05 20:37 Patient arrived in ED. ja2 20:57 Triage completed. vc1 21:02 Arm band placed on right wrist. vc1 22:13 Kiah Chang, RN is Primary Nurse. mk 22:16 Galo Butcher MD is Attending Physician. pkl 22:44 COVID-19/FLU A+B (Document "Date of Onset" if Symptomatic): SOB, cough Sent. ld1 22:47 D-Dimer Sent. sm5 22:47 Lactate Sent. sm5 22:47 Procalcitonin Sent. sm5 22:47 Blood Culture Adult (2) Sent. sm5 22:47 Basic Metabolic Panel Sent. sm5 22:47 CBC with Diff Sent. sm5 22:47 LFT's Sent. sm5 22:47 Magnesium Sent. sm5 22:47 NT PRO-BNP Sent. sm5 22:47 PT-INR Sent. sm5 22:47 Troponin HS Sent. sm5 22:51 XRAY Chest (1 view) In Process Unspecified. EDMS 23:19 COVID-19/FLU A+B (Document "Date of Onset" if Symptomatic): SOB, cough Sent. sm5 23:28 Type And Screen Sent. sm5 23:40 Served as a cellulose insulation helper during rectal exam. sm5 08/06 00:39 CT Chest For PE Angio In Process Unspecified. EDMS 00:39 CT Abd/Pelvis - IV Contrast Only In Process Unspecified. EDMS 00:54 Patient has correct armband on for positive identification. Placed in gown. Bed in low sm5 position. Call light in reach. Side rails up X2. phototypesetting equipment monitor on. Pulse ox on. NIBP on. 03:03 Packed RBC Leukored Sent. mk 06:29 called and left message on Dr. Wilhelm's cell phone to call Dr. Butcher back for a patient eb consult. 06:[address] Wilhelm with Dr. Butcher for patient admission consultation. eb 07:07 Nenita Linares MD is Hospitalizing Provider. pkl 07:39 uncomfortable. jg9 07:49 Pt visited by . jg9 09:28 Patient admitted, IV remains in place. jg9 Administered Medications: 08/05 22:47 Drug: NS 0.9% 1000 ml Route: IV; Rate: 125 ml/hr; Site: right antecubital; sm5 08/06 07:00 Follow up: IV Status: Completed infusion; IV Intake: 1000ml jg9 09:53 Not Given (Patient Refused): Tussionex Pennkinetic ER (chlorpheniramine-hydrocodone) jg9 Suspension 5 ml PO once Intake: 07:00 IV: 1000ml; Total: 1000ml. jg9 Outcome: 07:09 Decision to Hospitalize by Provider. pkl 09:28 Admitted to ER Hold. Please see [facility] for further documentation. jg9 09:28 Condition: stable jg9 12:36 Patient left the ED. jl7 Signatures: Dispatcher [employer] EDMS Galo Butcher MD MD pkCathy Rascon RN RN jl7 Karen Cuenca Lauren, RN RN ld1 Prema Padron Sarah RN RN sm5 Sherry Benavides RN RN jg9 Kiah Chang RN RN mk Calcote, Vanessa RN RN vc1 Darlene Cardenas RN RN sf1 Corrections: (The following items were deleted from the chart) 08:34 07:30 BP 159 / 97; Pulse 79bpm; Pulse Ox 100%; jg9 jg9
--- NOTE | 2021-08-06 07:10 | EDPHYS ---
Physician Documentation [facility] Name: Yoly Vanessa Age: 61 yrs Sex: Female : 1960 Arrival Date: 08/05/2021 Time: 20:37 Bed 3 Private MD: ED Physician Galo Butcher HPI: 08/05 23:00 This 61 yrs old Female presents to ER via Ambulatory with complaints of Breathing pkl Difficulty, Cough. 23:00 The patient has shortness of breath at rest. Onset: The symptoms/episode began/occurred pkl 2 week(s) ago. Associated signs and symptoms: Pertinent positives: productive cough. Historical: - Allergies: 20:57 No Known Allergies; vc1 - Home Meds: 20:57 ipratropium and albuterol [Active]; amoxicillin-pot clavulanate 875-125 mg Oral tab vc1 [Active]; - PMHx: 20:57 COPD; Diabetes - IDDM; high cholesterol; Restless leg; vc1 - PSHx: 20:57 None; vc1 - Immunization history:: Adult Immunizations up to date, Client reports receiving the 2nd dose of the Covid vaccine, Flu vaccine is not up to date. - Social history:: Smoking status: Patient reports the use of cigarette tobacco products, smokes .25 packs per day. ROS: 23:00 Eyes: Negative for injury, pain, redness, and discharge, ENT: Negative for injury, pkl pain, and discharge, Neck: Negative for injury, pain, and swelling, Cardiovascular: Negative for chest pain, palpitations, and edema. 23:00 Respiratory: Positive for cough, with clear sputum, shortness of breath, on exertion. wheezing. 23:00 Abdomen/GI: Negative for abdominal pain, nausea, vomiting, and diarrhea. 23:00 Back: Negative for acute changes. 23:00 : Negative for urinary symptoms. 23:00 MS/extremity: Negative for acute changes. 23:00 Skin: Negative for rash. 23:00 Neuro: Negative for altered mental status, loss of consciousness. Exam: 23:00 Head/Face: Normocephalic, atraumatic. Eyes: Pupils equal round and reactive to light, pkl extra-ocular motions intact. Lids and lashes normal. Conjunctiva and sclera are non-icteric and not injected. Cornea within normal limits. Periorbital areas with no swelling, redness, or edema. ENT: Nares patent. No nasal discharge, no septal abnormalities noted. Tympanic membranes are normal and external auditory canals are clear. Oropharynx with no redness, swelling, or masses, exudates, or evidence of obstruction, uvula midline. Mucous membranes moist. Neck: Trachea midline, no thyromegaly or masses palpated, and no cervical lymphadenopathy. Supple, full range of motion without nuchal rigidity, or vertebral point tenderness. No Meningismus. Chest/axilla: Normal chest wall appearance and motion. Nontender with no deformity. No lesions are appreciated. Cardiovascular: Regular rate and rhythm with a normal S1 and S2. No gallops, murmurs, or rubs. Normal PMI, no JVD. No pulse deficits. 23:00 Respiratory: mild respiratory distress is noted, Respirations: labored breathing, that is mild, Breath sounds: bronchial sounds, that are mild, are scattered, rhonchi, that are mild, are scattered. 23:00 Abdomen/GI: Exam negative for acute changes. 23:00 Back: Exam negative for acute changes. 23:00 : Exam negative for acute changes. 23:00 Musculoskeletal/extremity: Exam is negative for acute changes. 23:00 Skin: Exam negative for rash. 23:00 Neuro: Orientation: is normal, Mentation: is normal, Cranial nerves: grossly normal, Motor: is normal. 23:48 Abdomen/GI: Rectal exam: Stool: guaiac positive, the exam is chaperoned by the nurse. [facility] Vital Signs: 20:53 BP 178 / 115; Pulse 103; Resp 24; Temp 98.1(TE); Pulse Ox 97% on R/A; Weight 81.65 kg; vc1 Height 5 ft. 3 in. (160.02 cm); Pain 0/10; 21:02 BP 139 / 54; vc1 22:00 BP 156 / 85; Pulse 115; Resp 20; Pulse Ox 100% on R/A; sm5 23:00 BP 110 / 80; Pulse 99; Resp 19; Pulse Ox 99% on R/A; sm5 08/06 00:00 BP 112 / 102; Pulse 102; Resp 19; Pulse Ox 98% on R/A; sm5 00:40 BP 124 / 71; Pulse 107; Resp 18; Pulse Ox 99% on R/A; mk 01:40 BP 136 / 74; Pulse 97; Resp 18; Pulse Ox 99% on R/A; mk 02:40 BP 144 / 78; Pulse 93; Resp 18; Pulse Ox 99% on R/A; mk 03:40 BP 143 / 58; Pulse 95; Resp 18; Pulse Ox 100% on R/A; mk 04:40 BP 127 / 77; Pulse 88; Resp 16; Pulse Ox 96% on R/A; mk 05:40 BP 143 / 86; Pulse 86; Resp 18; Pulse Ox 95% on R/A; mk 06:00 BP 139 / 89; Pulse 87; Resp 18; Temp 98.0; Pulse Ox 98% ; sf1 07:15 BP 127 / 84; Pulse 91; Resp 18; Temp 98.1; Pulse Ox 98% on R/A; jg9 07:45 BP 159 / 97; Pulse 79; Resp 17 S; Temp 98.2(O); Pulse Ox 100% ; jg9 08:15 BP 121 / 93; Pulse 90; Resp 18 S; Temp 98.0(O); Pulse Ox 99% on R/A; jg9 08:45 BP 124 / 80; Pulse 87; Resp 17 S; Pulse Ox 100% on R/A; jg9 09:15 BP 100 / 51; Pulse 90; Resp 18 S; Pulse Ox 99% on R/A; jg9 09:40 BP 159 / 92; Pulse 92; Resp 18; Temp 98.2(O); Pulse Ox 100% on R/A; jg9 10:30 BP 118 / 76; Pulse 96; Resp 18 S; Pulse Ox 100% ; jg9 11:20 BP 109 / 62; Pulse 93; Resp 18 S; Pulse Ox 97% ; jg9 08/05 20:53 Body Mass Index 31.89 (81.65 kg, 160.02 cm) vc1 MDM: 08/05 22:16 Patient medically screened. pkl 08/06 06:46 Data reviewed: vital signs, nurses notes, lab test result(s), EKG, radiologic studies, pkl CT scan, plain films. 07:01 ED course: Talked to Dr. Wilhelm, will consult. Talked to Dr. Linares, will admit. pkl 08/05 22:25 Order name: Basic Metabolic Panel; Complete Time: 23:45 pkl 08/05 22:25 Order name: CBC with Diff; Complete Time: 23:45 pkl 08/05 22:25 Order name: LFT's; Complete Time: 23:45 pkl 08/05 22:25 Order name: Magnesium; Complete Time: 23:45 pkl 08/05 22:25 Order name: NT PRO-BNP; Complete Time: 23:45 pkl 08/05 22:25 Order name: PT-INR; Complete Time: 23:45 pkl 08/05 22:25 Order name: Troponin HS; Complete Time: 23:45 pkl 08/05 22:25 Order name: Blood Culture Adult (2) pkl 08/05 22:25 Order name: ABG; Complete Time: 23:45 pkl 08/05 22:25 Order name: Lactate; Complete Time: 23:45 pkl 08/05 22:25 Order name: Procalcitonin; Complete Time: 23:45 pkl 08/05 22:25 Order name: D-Dimer; Complete Time: 23:45 pkl 08/05 22:29 Order name: COVID-19/FLU A+B (Document "Date of Onset" if Symptomatic): SOB, cough; pkl Complete Time: 23:45 08/05 23:07 Order name: Type And Screen pkl 08/05 23:47 Order name: Urine Dipstick-Ancillary; Complete Time: 23:48 EDMS 08/06 00:26 Order name: ABO/RH no charge; Complete Time: 01:15 EDMS 08/06 01:42 Order name: Packed RBC Leukored EDMS 08/06 08:48 Order name: Basic Metabolic Panel EDMS 08/06 08:48 Order name: Basic Metabolic Panel EDMS 08/06 08:48 Order name: Protime (+INR) EDMS 08/06 08:48 Order name: Protime (+INR) EDMS 08/06 08:48 Order name: PTT, Activated Partial Thromb EDMS 08/06 08:48 Order name: PTT, Activated Partial Thromb EDMS 08/06 08:50 Order name: Hematocrit EDMS 08/06 08:50 Order name: Hematocrit EDMS 08/06 08:50 Order name: Hemoglobin EDMS 08/06 08:50 Order name: Hemoglobin EDMS 08/05 22:25 Order name: XRAY Chest (1 view) pk 08/05 22:25 Order name: EKG; Complete Time: 22:26 pk 08/05 22:25 Order name: Cardiac monitoring; Complete Time: 22:32 pk 08/05 22:25 Order name: EKG - Nurse/Tech; Complete Time: 22:44 pk 08/05 22:25 Order name: IV Saline Lock; Complete Time: 22:44 pk 08/05 22:25 Order name: Labs collected and sent; Complete Time: 22:44 pk 08/05 22:25 Order name: O2 Per Protocol; Complete Time: 22:32 pk 08/05 22:25 Order name: O2 Sat Monitoring; Complete Time: 22:32 pk 08/05 23:02 Order name: Urine Dipstick-Ancillary (obtain specimen); Complete Time: 23:47 pk 08/05 23:48 Order name: CT Chest For PE Angio pk 08/05 23:48 Order name: CT Abd/Pelvis - IV Contrast Only pk 08/06 08:48 Order name: CONS Physician Consult EDNM 08/06 08:48 Order name: NPO EDMS 08/06 08:48 Order name: EKG Electrocardiogram EDMS 08/06 08:48 Order name: EKG Electrocardiogram EDMS 08/06 08:48 Order name: EKG Electrocardiogram EDMS 08/06 08:48 Order name: EKG Electrocardiogram EDMS 08/06 08:48 Order name: EKG Electrocardiogram EDMS 08/06 08:49 Order name: EKG Electrocardiogram EDMS 08/06 08:49 Order name: EKG Electrocardiogram EDMS 08/06 08:50 Order name: EKG Electrocardiogram EDMS 08/06 08:50 Order name: EKG Electrocardiogram EDMS 08/06 08:50 Order name: EKG Electrocardiogram EDMS 08/06 08:50 Order name: EKG Electrocardiogram EDMS 08/06 11:51 Order name: Glucose, Ancillary Testing EDMS Administered Medications: 08/05 22:47 Drug: NS 0.9% 1000 ml Route: IV; Rate: 125 ml/hr; Site: right antecubital; sm5 08/06 07:00 Follow up: IV Status: Completed infusion; IV Intake: 1000ml jg9 09:53 Not Given (Patient Refused): Tussionex Pennkinetic ER (chlorpheniramine-hydrocodone) jg9 Suspension 5 ml PO once Disposition Summary: 08/06/21 07:09 Hospitalization Ordered Hospitalization Status: Inpatient Admission pkl Provider: Nenita Linares Location: Telemetry/MedSur (Inpatient) pkl Condition: Stable pkl Problem: new pkl Symptoms: are unchanged pkl Bed/Room Type: Standard pkl Room Assignment: 229(08/06/21 11:21) eb Diagnosis - Acute exacerbation COPD. Anemia. Colitis pkl Forms: - Medication Reconciliation Form pkl - SBAR form pkl Signatures: Dispatcher [employer] EDMS Galo Butcher MD MD pkl Karen Cuenca Sarah RN RN sm5 Giovanna Ridley RN RN vc1 Sherry Benavides RN jg9 Corrections: (The following items were deleted from the chart) 01:41 01:32 PACKED RBC LEUKORED -1+BB.LAB.BRZ ordered. EDMS EDMS 01:41 01:32 ABO/RH typing ordered. EDMS EDMS 01:41 01:32 Antibody Screen ordered. EDMS EDMS 11:21 07:09 pkl eb
[2021-08-06] MEDS ORDERED: ONDANSETRON 4 MG/2 ML VIAL IV PRN (08:45)
[2021-08-06] MEDS ORDERED: MORPHINE 2 MG/ML SYR IV PRN (08:45)
[2021-08-06] MEDS: NA CHLORIDE 0.9% 1,000 ML IV SCH ×2 (09:00→19:00)
[2021-08-06] MEDS: PANTOPRAZOLE INJ 80 MG in NA CHLORIDE 0.9% 250 ML IV SCH ×2 (09:00→20:25)
[2021-08-06] MEDS ORDERED: NA CHLORIDE 0.9% 250 ML IV SCH (09:00)
--- NOTE | 2021-08-06 09:01 | RAD REPORT ---
EXAM DESCRIPTION: RAD - Chest Single View - 08/05/2021 10:51 pm CLINICAL HISTORY: Cough;Dyspnea Chest pain. COMPARISON: Chest Pa And Lat (2 Views) dated 07/29/2021; Chest Single View dated 03/01/2019; Chest Pa And Lat (2 Views) dated 04/01/2016 FINDINGS: Portable technique limits examination quality. Moderate bilateral pulmonary opacities are present most compatible with pneumonia. The heart is mildl y prominent size. No displaced fractures.Cervical hardware plate is noted.
[2021-08-06] MEDS ORDERED: NA CHLORIDE 0.9% 1,000 ML ONE (10:07)
[2021-08-06 11:16] LABS: Hematocrit 26.1 % (36.0-45.0)
[2021-08-06 11:21] VITALS: BMI 32.8
--- NOTE | 2021-08-06 13:28 | P.HP ---
Certification for Inpatient Patient admitted to: Inpatient With expected LOS: >2 Midnights Patient will require the following post-hospital care: None Practitioner: I am a practitioner with admitting privileges, knowledge of patient current condition, hospital course, and medical plan of care. Services: Services provided to patient in accordance with Admission requirements found in Title 42 Section 412.3 of the Code of Federal Regulations Patient History Date of Service: 08/06/21 Reason for admission: GIB History of Present Illness: Patient is a 61yo who was admitted with a GI bleed. Patient with bright red blood per rectum. Remains anemic. Also with a history of COPD. Patient has notice some bright red blood per rectum for the last 24 hr. Was some worsening so she came into the emergency room for further evaluation. In the emergency room she was found have a hemoglobin of 5.6. Patient denies any prior blood transfusion. Patient be admitted to the hospital for further treatment. Allergies No Known Allergies Allergy (Unverified 08/06/21 04:50) Home Medications: Aspirin [Aspirin EC 81 MG] 81 mg PO DAILY 08/06/21 Atorvastatin Calcium [Lipitor] 40 mg PO BEDTIME 08/06/21 Insulin Aspart [Novolog Flexpen] unit SQ AC 08/06/21 Insulin Detemir [Levemir] 25 unit SQ BEDTIME 08/06/21 Insulin Lispro [Humalog] 30 unit SQ DAILY 08/06/21 Metformin HCl [Metformin ER Osmotic] 1,000 mg PO BEDTIME 08/06/21 Sertraline [Zoloft] 25 mg PO DAILY 08/06/21 - Past Medical/Surgical History Has patient received pneumonia vaccine in the past: Yes Diabetic: Yes -: COPD -: Diabetes -: Hyperlipidemia -: Restless leg syndrome -: Anemia -: Cholecystectomy -: - Family History Father Family History: Reviewed- Non-Contributory - Social History Smoking Status: Current every day smoker Alcohol use: No CD- Drugs: No Place of Residence: Home Review of Systems 10-point ROS is otherwise unremarkable Physical Examination - Vital Signs Temperature: 98.2 F Blood Pressure: 109/62 Pulse: 93 Respirations: 18 - Physical Exam General: Alert, In no apparent distress, Oriented x3 HEENT: Atraumatic, PERRLA, Mucous membr. moist/pink, EOMI, Sclerae nonicteric Neck: Supple, 2+ carotid pulse no bruit, No LAD, Without JVD or thyroid abnormality Respiratory: Diminished, Expiratory wheezes Cardiovascular: Regular rate/rhythm, Normal S1 S2, No murmurs Gastrointestinal: Normal bowel sounds, Soft and benign, Non-distended, No rebound, No guarding, Tenderness Musculoskeletal: No clubbing, No swelling, No tenderness Integumentary: No rashes Neurological: Normal gait, Normal speech, Normal strength at 5/5 x4 extr, Normal tone, Sensation intact, Cranial nerves 3-12 intact, Normal affect Lymphatics: No axilla or inguinal lymphadenopathy - Studies Laboratory Data (last 24 hrs) 08/05/21 22:25: PT 11.8, INR 1.03 08/05/21 22:25: WBC 10.10, Hgb 5.6 L*, Hct 18.6 L*, Plt Count 438 H 08/05/21 22:25: Sodium 138, Potassium 3.7, BUN 10, Creatinine 0.77, Glucose 73 L, Magnesium 2.3, Total Bilirubin 0.2, AST 23, ALT 31, Alkaline Phosphatase 125 H Assessment & Plan - Problems (Diagnosis) (1) Gastrointestinal bleed Current Visit: Yes Status: Acute (2) COPD (chronic obstructive pulmonary disease) Current Visit: Yes Status: Acute - Plan 1. Continue with IV hydration and PPI drip 2. Continue with IV antibiotics 3. Continue with pain control 4. NPO 5.GIconsultation 6. Monitor LFTs and lipase along with electrolytes and serial H&H. 7. Monitor respiratory status-nebs as needed 8. GI and DVT prophylaxis Discharge Plan: Home Plan to discharge in: Greater than 2 days - Advance Directives Does patient have a Living Will: No Does patient have a Durable POA for Healthcare: No - Code Status/Comfort Care Code Status Assessed: Yes Code Status: Full Code Critical Care: No Time Spent Managing PTS Care (In Minutes): 45
--- NOTE | 2021-08-06 13:50 | RAD REPORT ---
EXAM DESCRIPTION: 1. CTA of the chest with contrast. 2. CT of the abdomen and pelvis with contrast. CLINICAL HISTORY: Cough;Dyspnea COMPARISON: None Available. TECHNIQUE: CTA of the chest obtained following IV administration of iodinated contrast . 3-D/MIP ref ormatted images available. CT of the abdomen and pelvis was then performed in the portal venous phase This exam was performed according to our departmental dose-optimization program, which includes auto mated exposure control, adjustment of the mA and/or kV according to patient size and/or use of iterat chivo reconstruction technique. FINDINGS: Chest: Pulmonary arteries: Contrast bolus is adequate.No filling defects identified in the pulmonary arterie s to suggest pulmonary embolus. Thyroid: No abnormalities of the visualized thyroid. Great Vessels: Great vessels have normal anatomic configuration. Thoracic Aorta: Atherosclerotic calcification of the thoracic aorta. Heart: No cardiomegaly. Coronary artery atherosclerosis. Lymph Nodes: No enlarged mediastinal lymph nodes identified. Esophagus: No abnormalities of the esophagus identified. Other: Bilateral breast implants. Lungs: Mild bibasilar interlobular septal thickening. Right lung granuloma. Pleura: No pleural effusion or pneumothorax. Trachea/Airways: No abnormalities of the visualized trachea or airways. Abdomen: Liver: The liver has normal size and density. No intrahepatic mass or biliary dilatation. Gallbladder: Prior cholecystectomy. Spleen, Pancreas, and Adrenal Glands: Calcified splenic granulomas. Pancreas and left adrenal gland are unremarkable. Lipid rich 1.8 cm right adrenal adenoma. Kidneys: The kidneys have normal size without evidence of solid mass or hydronephrosis. Vasculature: Aortoiliac atherosclerosis. IVC is unremarkable. The portal vein is patent. The proxim al visceral and renal arteries are patent. Stomach: The stomach and duodenum have normal course. Other: No free intraperitoneal air. No free fluid or lymphadenopathy. Pelvis: Bladder: Urinary bladder is unremarkable. Bowel: No dilated loops of large or small bowel. Wall thickening of the descending and sigmoid colo n. Appendix: Not visualized. Pelvis: Uterus is not enlarged. Bones: Right rib fractures. Mild multilevel endplate spondylosis and facet arthropathy. IMPRESSION: 1. No pulmonary embolus identified. 2. Mild bibasilar interlobular septal thickening. These findings could be seen with mild interstiti al pulmonary edema. 3. Coronary artery atherosclerosis. 4. Wall thickening of the descending and sigmoid colon. This could be seen with nonspecific colitis . 5. Lipid rich right adrenal adenoma. No follow-up imaging recommended. Electronically signed by: Jigar Ruiz 08/06/2021 1:07 AM SIEBEL ADMINISTRATOR Due to temporary technical issues with the PACS/Fluency reporting system, reports are being signed by the in house radiologists without review as a courtesy to insure prompt reporting. The interpreting radiologist is fully responsible for the content of the report.
[2021-08-06 15:08] LABS: Hematocrit 24.6 % (36.0-45.0)
[2021-08-06] MEDS ORDERED: EPINEPHRINE/PF 1 MG/ML AMP ONE (17:45)
[2021-08-06] MEDS ORDERED: LIDOCAINE 1% MPF 5 ML VIAL ONE (17:52)
[2021-08-06] MEDS ORDERED: propofoL 200 MG/20 ML VIAL IV ONE (17:52)
[2021-08-06] MEDS ORDERED: INFLUENZA VACCINE (for 6+ mo) 0.5 ML DOSE IMVAC ONE (18:00)
[2021-08-06] MEDS ORDERED: ALBUTEROL 2.5 MG/3 ML NEB SOL ONE (18:00)
--- NOTE | 2021-08-06 18:56 | ENDO RPT ---
[address], [address] EGD PROCEDURE REPORT EXAM DATE: 08/06/2021 PATIENT NAME: Yoly Vanessa MR#: [id number] BIRTHDATE: 1960 ATTENDING: Gasper [address] Dr STATUS: inpatient ANESTHESIA RESIDENT: Damaris Marion RN and Polo Cheng CST INDICATIONS: The patient is a 61 yr old Female here for an EGD due to anemia, PROCEDURE PERFORMED: EGD with biopsy MEDICATIONS: Per Anesthesia. TOPICAL ANESTHETIC: none CONSENT: The patient understands the risks and benefits of the procedure and understands that these risks include, but are not limited to: sedation, allergic reaction, infection, perforation and/or bleeding. Alternative means of evaluation and treatment include, among others: physical exam, x-rays, and/or surgical intervention. The patient elects to proceed with this endoscopic procedure. DESCRIPTION OF PROCEDURE: During intra-op preparation period all mechanical medical equipment was checked for proper function. Hand hygiene and appropriate measures for infection prevention was taken. Procedure, possible complications, and alternatives including but not limited to the possibility of bleeding, perforation, tear, infection, sepsis, need for surgery, need for blood transfusion, and anesthesia related complications were explained to the patient. After the risks, benefits and alternatives of the procedure were thoroughly explained, Informed consent was verified, confirmed and timeout was successfully executed by the treatment team. The patient was placed in the left lateral position. The patient was anesthetized with topical anesthesia. Through the anesthetized oropharyngeal area, the scope was passed without any difficulty. The Pentax EG-[id number] ([id number]) endoscope was introduced through the mouth and advanced to the third portion of the duodenum. Retroflexed views revealed no abnormalities. The gastroscope was then slowly withdrawn and removed. Mild nodular mucosa was found in the body of the stomach. Multiple biopsies were obtained and sent to pathology. Mild gastritis was found in the antrum. Multiple biopsies were obtained and sent to pathology. Small bowel biopsies obtained with history of unexplained anemia. ADVERSE EVENTS: There were no complications. IMPRESSIONS: 1. Mild nodular mucosa in the body of the stomach, s/p biopsies 2. Mild gastritis in the antrum, s/p biopsies 3. Small bowel biopsies obtained with history of unexplained anemia RECOMMENDATIONS: 1. await biopsy results 2. acid suppression therapy 3. try to obtain prior 2019 colonoscopy report REPEAT EXAM: Colonoscopy after cardiac evaluation with elevated Troponin I and small bowel evaluation Gasper Wilhelm Dr eSigned: Gasper Wilhelm Dr 08/06/2021 6:55 PM cc: Nenita Linares CPT CODES: ICD9 CODES: PATIENT NAME: OtfYoly MR#: [id number]
[2021-08-06] MEDS ORDERED: PANTOPRAZOLE 40 MG INJ ONE (20:19)
[2021-08-06] MEDS: MELATONIN 5 MG TABLET PO PRN (20:25)
[2021-08-06] MEDS: ROPINIROLE HCL 0.25 MG TAB PO SCH (20:26)
[2021-08-06] MEDS: FLUTICASONE 50MCG NASAL SPRAY NAS SCH (20:45)
--- NOTE | 2021-08-06 23:12 | CON ---
Date of Consultation: 08/06/2021 Reason Consultation: Anemia, hemoglobin down to 5.6. History Of Present Illness: The patient is a 61-year-old white female with a history of diabetes, shyam rderline hypertension, COPD, hyperlipidemia, restless legs syndrome, obesity. The patient presented to hospital with shortness of breath, plus she had bronchitis, found to have possible pneumonia, admi tted for further evaluation, care and therapy. The patient was also found to have a hemoglobin of 5. 6. The patient denies sight of any blood. She denies any melena, hematochezia, hematemesis, coffee- grounds emesis, hematuria, dysuria, polydipsia, or hemoptysis. Past Medical History: Significant for diabetes, borderline hypertension, COPD, hyperlipidemia, restl ess legs syndrome, obesity. Medications: Currently, she is on morphine, Zofran, Protonix, IV saline. Home medications include Lipitor, Zoloft, metformin, Humalog insulin, Levemir insulin, NovoLog insuli n, aspirin 81 mg daily. Allergies: NKDA. Social History: She is , 3 children, 40 pack-year tobacco, continues to smoke. Says she is t rying to decrease to a quarter pack a day now. Rare alcohol, she states only on social occasions. Family History: Father of unknown cause. Mother of old age of diabetes. Review of Systems: The patient has shortness of breath, mild cough. Denies any melena, hematochezia, hematemesis, coffe e-grounds emesis, hematuria, dysuria, polydipsia, hemoptysis. Denies any blood seen at all recently. No chest pain. She does have shortness of breath, dyspnea on exertion. She denies any seizures, s yncope, muscle aches, joint aches, backaches, depression and anxiety. I guess she has, but she is on therapy on Zoloft for depression. I guess her depression is treated. Physical Examination: Vital Signs: The patient is 5 feet 3 inches, 185 pounds, BMI 32.8 kg/m2. Temperature 97.2 degrees F ahrenheit, pulse 96, respirations 18, blood pressure 134/67, O2 saturation 97%. General: She is an obese female, lying in bed, in no acute distress. HEENT: Normocephalic, atraumatic. Anicteric. Pupils are equal, round, and reactive to light. Extr aocular movements are intact. Oropharynx is clear. Neck: Supple, no masses. Respiration: Clear to auscultation bilaterally. Cardiac: Regular rate and rhythm. No gallops. Gastrointestinal: Positive bowel sounds. Soft, nontender, nondistended. No hepatosplenomegaly. Ob antonia. Extremities: No clubbing, cyanosis. Mild edema. Neurologic: Alert and oriented x3. Grossly nonfocal. 5/5 motor, sensation intact to light touch. Laboratory Data: The patient has a hemoglobin of 5.6 on admission, now 7.9 after 2 units of packed R BCs. White count of 10.10, hematocrit of 18.6 and now 24.6 after transfusion, MCV of 99 on admission , platelet count 438, polys of 76%, lymphocytes 13%, monocytes 9%, eosinophils 2%. PT of 11.8, INR o f 1.03. D-dimer elevated 644. She has a sodium 138, potassium 3.7, chloride 106, bicarb 25, BUN of 10, creatinine of 0.8, glucose 73, lactic acid of 1.8, calcium is 8.4, magnesium 2.3, total bilirubin 0.2, direct bilirubin less than 0.1. AST 23, ALT 31, alkaline phosphatase 125. Troponin I of 31.2. B-type natriuretic peptide is 648. Total protein 6.3, albumin 3.2. Procalcitonin of less than 0.0 5. UA shows trace leukocyte esterase. Serology: Influenza A and B negative. COVID-19 negative. Mild CHF. Imaging: CT chest, thorax, reveals no pulmonary embolus. Bibasilar interlobular thickening. These findings are consistent with mild interstitial pulmonary edema, coronary artery atherosclerosis, wall thickening, descending sigmoid colon could be seen and nonspecific colitis that is mild and that is in the descending colon and sigmoid colon. Lipid-rich right adrenal adenoma. Chest x-ray shows mode rate bilateral pulmonary opacities present compatible with pneumonia. Heart is mildly prominent. No displaced fracture. Moderate bilateral pneumonia. Impression: 1.Anemia. Hemoglobin down to 5.6, MCV is normal at 99. She had a colonoscopy approximately 3 years ago at [facility] in [place], [place], told she had a few polyps, otherwise negative. She denies a ny blood seen, including no melena, hematochezia, no coffee-grounds emesis, hematemesis, hematuria, d ysuria, polydipsia. No hemoptysis or other blood seen by the patient. 2.Troponin I at 31.20 with a BNP of 648 indicative of congestive heart failure. Creatinine is caitlyn l at 0.7, so this may indeed be myocardial infarction. Need to assess with Anesthesia and Cardiology . 3.Colitis, mild in the descending-sigmoid colon. Will need diagnostic colonoscopy on this admission or later due to her cardiac enzymes being elevated. 4.Moderate bilateral pulmonary pneumonia, we will start IV antibiotics. White count of 10.10 and fu rther assessment needed with her creatinine 0.7. Recommendation: 1.Serial H and H and transfuse p.r.n. 2.Check iron numbers. 3.IV fluids and resuscitate. 4.EGD, consider colonoscopy and possibly small bowel evaluation. 5.Urinalysis has been done. No blood seen. 6.Cardiology consultation. 7.IV antibiotics. patient Christine Ortizkers med record. 8.Nine 01/14/2008 on August 06, [address] Linares thank you. NAYAN/MODL Voice ID: [id number] Report ID: [id number]
[2021-08-07 06:04] LABS: Hematocrit 22.5 % (36.0-45.0); Lymphocytes % 13.3 % (15.3-44.8); MPV 7.2 fL (7.6-11.3); RBC Red Blood Cell Count 2.38 M/uL (3.86-4.86)
[2021-08-07 06:14] LABS: BUN Blood Urea Nitrogen 8 mg/dL (7-18); Bicarbonate 23 mmol/L (21-32); Glucose Level 140 mg/dL (74-106); Sodium Level 137 mmol/L (136-145)
[2021-08-07 06:25] LABS: Protime INR 1.09
[2021-08-07] MEDS: NA CHLORIDE 0.9% 1,000 ML IV SCH (06:44)
[2021-08-07] MEDS: PANTOPRAZOLE INJ 80 MG in NA CHLORIDE 0.9% 250 ML IV SCH ×2 (06:45→15:07)
[2021-08-07] MEDS: FLUTICASONE 50MCG NASAL SPRAY NAS SCH (09:00)
[2021-08-07 11:34] LABS: Absolute Lymphocytes (CBC) 0.7 K/uL (0.7-4.9); Hematocrit 23.6 % (36.0-45.0); Lymphocytes % 10.3 % (15.3-44.8); RBC Red Blood Cell Count 2.49 M/uL (3.86-4.86)
[2021-08-07] MEDS ORDERED: METHYLPREDNISOLONE 125 MG INJ IV ONE (15:00)
[2021-08-07] MEDS ORDERED: FUROSEMIDE 20 MG/ 2ML VIAL IV ONE (15:00)
--- NOTE | 2021-08-07 15:17 | RAD REPORT ---
EXAM DESCRIPTION: Cindy Single View08/07/2021 2:30 pm CLINICAL HISTORY: Chest pain COMPARISON: August 06, 2021 FINDINGS: Previously described mild bilateral pulmonary opacities appear resolved. Heart is mildly enlarged
[2021-08-07] MEDS: NICOTINE 21 MG/PAT TD SCH (15:20)
[2021-08-07] MEDS ORDERED: MAGNESIUM CITRATE 300 ML BOT PO SCH (16:00)
[2021-08-07] MEDS ORDERED: GOLYTELY 4000 ML PO SCH (16:00)
[2021-08-07] MEDS: METOCLOPRAMIDE 10 MG/2mL INJ IV SCH (17:13)
[2021-08-07] MEDS: IPRATROPIUM BROM 0.5MG/2.5ML NEB SCH (19:20)
[2021-08-07] MEDS: ALBUTEROL 2.5 MG/3 ML NEB SOL NEB SCH (19:20)
[2021-08-07] MEDS: ROPINIROLE HCL 0.25 MG TAB PO SCH (21:00)
[2021-08-07] MEDS: METHYLPREDNISOLONE 40 MG INJ IV SCH (21:11)
--- NOTE | 2021-08-08 00:52 | P.PN ---
Subjective Date of Service: 08/07/21 Still with dyspnea; still with BRBPR; plan to do outpt colonoscopy. Troponin negative. Dyspnea possibly secondary to COPD/anemia Review of Systems 10-point ROS is otherwise unremarkable Physical Examination - Vital Signs Temperature: 98.2 F Blood Pressure: 109/62 Pulse: 93 Respirations: 18 Pulse Ox (%): 95 - Physical Exam General: Alert, In no apparent distress HEENT: Atraumatic, PERRLA, EOMI Neck: Supple, JVD not distended Respiratory: Clear to auscultation bilaterally, Normal air movement Cardiovascular: Regular rate/rhythm, Normal S1 S2 Gastrointestinal: Normal bowel sounds, No tenderness Musculoskeletal: No tenderness Integumentary: No rashes Neurological: Normal speech, Normal tone, Normal affect Lymphatics: No axilla or inguinal lymphadenopathy - Studies Medications List Reviewed: Yes Assessment & Plan - Problems (Diagnosis) (1) Gastrointestinal bleed Current Visit: Yes Status: Acute (2) COPD (chronic obstructive pulmonary disease) Current Visit: Yes Status: Acute - Plan 1. Continue with IV hydration and PPI drip 2. Continue with IV antibiotics 3. Continue with pain control 4. NPO; colonoscopy in the morning 5.GIconsultation 6. Monitor labs 7. We started patient with nebs and steroids as patient has some wheezing and distress 8. GI and DVT prophylaxis Discharge Plan: Home Plan to discharge in: Greater than 2 days - Advance Directives Does patient have a Living Will: No Does patient have a Durable POA for Healthcare: No - Code Status/Comfort Care Code Status Assessed: Yes Code Status: Full Code Critical Care: No Time Spent Managing PTS Care (In Minutes): 35
[2021-08-08] MEDS: PANTOPRAZOLE INJ 80 MG in NA CHLORIDE 0.9% 250 ML IV SCH ×3 (01:02→20:47)
[2021-08-08] MEDS: METHYLPREDNISOLONE 40 MG INJ IV SCH ×3 (01:02→17:42)
[2021-08-08] MEDS: METOCLOPRAMIDE 10 MG/2mL INJ IV SCH ×2 (01:02→04:00)
[2021-08-08] MEDS: ALBUTEROL 2.5 MG/3 ML NEB SOL NEB SCH ×4 (02:20→19:30)
[2021-08-08] MEDS: IPRATROPIUM BROM 0.5MG/2.5ML NEB SCH ×4 (02:20→19:30)
[2021-08-08 06:18] LABS: Absolute Lymphocytes (CBC) 0.4 K/uL (0.7-4.9); Lymphocytes % 6.1 % (15.3-44.8); MPV 7.5 fL (7.6-11.3); RBC Red Blood Cell Count 2.89 M/uL (3.86-4.86)
[2021-08-08 06:48] LABS: Bilirubin Total 0.3 mg/dL (0.2-1.0); Magnesium 2.9 mg/dL (1.8-2.4); Potassium 4.3 mmol/L (3.5-5.1); Protein, Total 6.4 g/dL (6.4-8.2); Thyroid Stimulating Hormone 0.867 uIU/mL (0.360-3.740)
[2021-08-08] MEDS ORDERED: NA CHLORIDE 0.9% 500 ML ONE (08:44)
[2021-08-08] MEDS ORDERED: propofoL 200 MG/20 ML VIAL IV ONE (09:06)
--- NOTE | 2021-08-08 09:38 | ENDO RPT ---
[address], [address] COLONOSCOPY PROCEDURE REPORT EXAM DATE: 08/08/2021 PATIENT NAME: Yoly Vanessa MR #: [id number] BIRTHDATE: 1960 ATTENDING: Gasper Wilhelm Dr STATUS: inpatient SALES PROMOTION COORDINATOR: Polo Cheng CST and Damaris Marion RN INDICATIONS: The patient is a 61 yr old Female here for a colonoscopy due to anemia, hgb 5.6, abnormal CT of abdomen/pelvis - colitis in the descending / sigmoid colon, and personal history of colon polyps PROCEDURE PERFORMED: Colonoscopy MEDICATIONS: Per Anesthesia. ESTIMATED BLOOD LOSS: None CONSENT: The patient understands the risks and benefits of the procedure and understands that these risks include, but are not limited to: sedation, allergic reaction, infection, perforation and/or bleeding. Alternative means of evaluation and treatment include, among others: physical exam, x-rays, and/or surgical intervention. The patient elects to proceed with this endoscopic procedure. DESCRIPTION OF PROCEDURE: During intra-op preparation period all mechanical medical equipment was checked for proper function. Hand hygiene and appropriate measures for infection prevention was taken. Procedure, possible complications, alternatives including, but not limited to possibility of bleeding, perforation, tear, infection, sepsis, need for surgery, need for blood transfusion, were explained to the patient. After the risks, benefits and alternatives of the procedure were thoroughly explained, Informed consent was verified, confirmed and timeout was successfully executed by the treatment team. The patient was placed in the left lateral position. A digital rectal exam was performed and revealed several skin tags. After appropriate level of anesthesia, the scope was passed. The EC-[id number] ([id number]) endoscope was introduced through the anus and advanced to the terminal ileum which was intubated for a short distance. The quality of the prep was fair. The instrument was then slowly withdrawn as the colon was fully examined. Scope withdrawal time was 8 minutes. COLON FINDINGS: Diverticulum was found at the cecum. The opening was medium sized. Moderate sized internal hemorrhoids were found. Retroflexed views revealed medium hemorrhoids. The scope was then completely withdrawn from the patient and the procedure terminated. ADVERSE EVENTS: There were no complications. IMPRESSIONS: 1. Medium diverticulum at the cecum 2. Moderate sized internal hemorrhoids 3. Intubation to terminal ileum RECOMMENDATIONS: 1. Small Bowel Follow Through 2. pillcam / capsule endoscopy RECALL: Return in 3 year(s) for Colonoscopy. Gasper Wilhelm Dr eSigned: Gasper Wilhelm Dr 08/08/2021 9:37 AM cc: Nenita Linares CPT CODES: ICD9 CODES: 1. 455.9 Residual hemorrhoidal skin tags 2. 562.10 Diverticulosis of colon (without mention of hemorrhage) PATIENT NAME: Yoly Vanessa MR#: [id number]
[2021-08-08 09:59] LABS: Anisocytosis 2+; Blood Morphology Comment NOTED (NOT SEEN); Platelet Estimate ADEQ; Polychromasia 1+; White Blood Cell Scan OK (OK)
[2021-08-08] MEDS: FLUTICASONE 50MCG NASAL SPRAY NAS SCH (10:58)
[2021-08-08] MEDS: NICOTINE 21 MG/PAT TD SCH (11:04)
--- NOTE | 2021-08-08 13:50 | RAD REPORT ---
EXAM DESCRIPTION: RAD - Small Bowel Series - 08/08/2021 1:43 pm CLINICAL HISTORY: occult GI bleed, anemia COMPARISON: Abdomen Pelvis W Contrast dated 08/06/2021 FINDINGS: Pr Specialist film shows a nonspecific bowel gas pattern. No obstruction or free air. No suspiciou s calcifications. Gastric size and mucosal fold pattern are normal. No delay in transit of contrast into the small lemuel l. Stomach has almost fully empty by 1 hour. Small bowel is normal in diameter with no mucosal fold t hickening. No intrinsic or extrinsic mass identifiable. Terminal ileum has normal appearance. Transit time to the colon is 45 minutes. IMPRESSION: Normal small bowel series.
[2021-08-08] MEDS ORDERED: ACETAMINOPHEN 500 MG TAB PO PRN (19:56)
[2021-08-08] MEDS: BENZONATATE 100 MG CAP PO PRN (20:45)
[2021-08-08] MEDS: MELATONIN 5 MG TABLET PO PRN (20:45)
[2021-08-08] MEDS: ROPINIROLE HCL 0.25 MG TAB PO SCH (20:47)
--- NOTE | 2021-08-08 23:54 | P.PN ---
Date of Service: 08/08/21 Subjective Date of Service: Patient status post colonoscopy. Patient with internal hemorrhoids. Hemoglobin dropped to 7.2 and patient was transfused another unit of packed red blood cells. Patient's respiratory status has improved. Patient has COPD and patient is on nebs and steroids. Review of Systems 10-point ROS is otherwise unremarkable Physical Examination - Vital Signs Reviewed - Physical Exam General: Alert, In no apparent distress Respiratory: Clear to auscultation bilaterally Cardiovascular: Regular rate/rhythm, Normal S1 S2 Gastrointestinal: Normal bowel sounds, No tenderness Neurological: Normal speech, Normal tone, Normal affect Assessment & Plan - Problems (Diagnosis) (1) Gastrointestinal bleed Current Visit: Yes Status: Acute (2) Acute COPD exacerbation Current Visit: Yes Status: Acute - Plan Continue with plan of care as mentioned below: 1. Hep-Lock IV and PPI drip 2. Continue with nebs and steroids; echocardiogram pending 3. Continue with pain control 4. Start a clear liquid diet and advance as tolerated 5.GIconsultation appreciated; patient status post EGD & colonoscopy-internal hemorrhoids most likely source of bleeding. 6. Monitor labs 7. GI and DVT prophylaxis
[2021-08-09] MEDS: METHYLPREDNISOLONE 40 MG INJ IV SCH ×3 (01:27→17:00)
[2021-08-09] MEDS: IPRATROPIUM BROM 0.5MG/2.5ML NEB SCH ×4 (02:30→20:25)
[2021-08-09] MEDS: ALBUTEROL 2.5 MG/3 ML NEB SOL NEB SCH ×4 (02:30→20:25)
[2021-08-09] MEDS: PANTOPRAZOLE INJ 80 MG in NA CHLORIDE 0.9% 250 ML IV SCH ×2 (04:41→17:00)
[2021-08-09 08:10] LABS: Absolute Lymphocytes (CBC) 0.4 K/uL (0.7-4.9); Hematocrit 24.8 % (36.0-45.0); Lymphocytes % 5.9 % (15.3-44.8); MPV 7.3 fL (7.6-11.3); RBC Red Blood Cell Count 2.65 M/uL (3.86-4.86)
[2021-08-09] MEDS: NICOTINE 21 MG/PAT TD SCH (08:37)
[2021-08-09] MEDS: FLUTICASONE 50MCG NASAL SPRAY NAS SCH (08:39)
--- NOTE | 2021-08-09 12:56 | P.PN ---
Subjective Date of Service: 08/09/21 Chief Complaint: GIB Subjective: Improving (Colonoscopy was negative except for hemorrhoids. EGD revealed only mild gastritis. Small bowel series was negative.) Physical Examination - Vital Signs Temperature: 97.0 F Blood Pressure: 148/80 Pulse: 97 Respirations: 18 Pulse Ox (%): 96 - Studies Medications List Reviewed: Yes Assessment And Plan - Current Problems (Diagnosis) (1) Anemia Current Visit: Yes Status: Acute - Plan REC: 1) outpatient pillcam 2) consider hematology consult
[2021-08-09] MEDS ORDERED: GLUCAGON 1 MG/VIAL IM PRN (14:37)
[2021-08-09] MEDS ORDERED: D50W 25 GM/50 ML SYRINGE IV PRN (14:37)
--- NOTE | 2021-08-09 14:42 | P.PN ---
Subjective Date of Service: 08/09/21 Chief Complaint: GIB Subjective: No new changes (Patient continues to have dizziness. Her hemoglobin continues to trend down. She had a negative EGD and colonoscopy.) Physical Examination - Vital Signs Temperature: 97.0 F Blood Pressure: 148/80 Pulse: 97 Respirations: 18 Pulse Ox (%): 96 - Physical Exam General: In no apparent distress HEENT: Atraumatic, Normocephalic Respiratory: Clear to auscultation bilaterally, Normal air movement Cardiovascular: No edema, Regular rate/rhythm, Normal S1 S2 Gastrointestinal: Hypoactive, Soft and benign, Non-distended Neurological: Normal speech, Normal affect - Studies Medications List Reviewed: Yes Assessment & Plan - Problems (Diagnosis) (1) Anemia Current Visit: Yes Status: Acute (2) COPD (chronic obstructive pulmonary disease) Current Visit: Yes Status: Acute (3) Gastrointestinal bleed Current Visit: Yes Status: Acute Physician Review Additional Text: Assessment Patient is a 61-year-old female with a past medical history of COPD currently admitted for evaluation of GI bleeding after she presented with shortness of breath and was found to be anemic. She has received 3 units of packed RBC. She has had an EGD and colonoscopy all of which failed to explain the reason for her bleeding. She is on PPI and IV fluids and her hemoglobin continues to trend down. Anemia, suspected GI bleeding COPD Hyperglycemia Plan: We will obtain orthostatic vitals Repeat hemoglobin tomorrow Continue telemetry monitoring Transfuse if hemoglobin is less than 7 GI is recommending a pill endoscopy as outpatient If her hemoglobin continues trending down, I will consider hematology consult Start insulin sliding scale for hyperglycemia Check hemoglobin A1c
--- NOTE | 2021-08-09 14:48 | ECHO ---
HEIGHT: 5 ft 3 in WEIGHT: 188 lb 0 oz DATE OF STUDY: 08/09/[address]: Nenita Linares MD 2-DIMENSIONAL: YES M.MODE: YES DOPPLER: YES COLOR FLOW: YES TDS: PORTABLE: DEFINITY: BUBBLE STUDY: DIAGNOSIS: CONGESTIVE HEART FAILURE CARDIAC HISTORY: CATHERIZATION: NO SURGERY: NO PROSTHETIC VALVE: NO PACEMAKER: NO MEASUREMENTS (cm) DIASTOLIC (NORMALS) SYSTOLIC (NORMALS) IVSd (0.6-1.2) LA Diam (1.9-4.0) LVEF 55-60% LVIDd (3.5-5.7) LVIDs (2.0-3.5) %FS % LVPWd (0.6-1.2) Ao Diam (2.0-3.7) 2 DIMENSIONAL ASSESSMENT: RIGHT ATRIUM: NORMAL LEFT ATRIUM: NORMAL RIGHT VENTRICLE: NORMAL LEFT VENTRICLE: NORAML TRICUSPID VALVE: NORMAL MITRAL VALVE: MITRAL ANNULAR CALCIFICATION WITH MILD MITRAL STENOSIS PULMONIC VALVE: NOT SEEN AORTIC VALVE: NORMAL PERICARDIAL EFFUSION: NONE AORTIC ROOT: NORMAL LEFT VENTRICULAR WALL MOTION: NORMAL DOPPLER/COLOR FLOW: SEE BELOW COMMENTS: NORMAL LEFT VENTRICULAR EJECTION FRACTION 55-60%. MITRAL ANNULAR CALCIFICATION WITH MILD MITRAL STENSOSIS. POOR WINDOWS. TECHNOLOGIST: BECKY PINEDA
[2021-08-09] MEDS: INSULIN -REGULAR HUMAN 50 UNIT/0.5 ML ML SQ SCH ×2 (15:15→21:45)
[2021-08-09] MEDS: ROPINIROLE HCL 0.25 MG TAB PO SCH (21:00)
[2021-08-09] MEDS: MELATONIN 5 MG TABLET PO PRN (21:44)
[2021-08-09] MEDS: BENZONATATE 100 MG CAP PO PRN (21:45)
[2021-08-10] MEDS: METHYLPREDNISOLONE 40 MG INJ IV SCH ×2 (00:22→09:01)
[2021-08-10] MEDS: ALBUTEROL 2.5 MG/3 ML NEB SOL NEB SCH ×3 (01:55→14:00)
[2021-08-10] MEDS: IPRATROPIUM BROM 0.5MG/2.5ML NEB SCH ×3 (01:55→14:00)
[2021-08-10] MEDS: PANTOPRAZOLE INJ 80 MG in NA CHLORIDE 0.9% 250 ML IV SCH ×2 (03:11→13:00)
[2021-08-10 05:58] LABS: Absolute Lymphocytes (CBC) 0.4 K/uL (0.7-4.9); Hematocrit 24.4 % (36.0-45.0); Lymphocytes % 6.2 % (15.3-44.8); MPV 7.4 fL (7.6-11.3); RBC Red Blood Cell Count 2.63 M/uL (3.86-4.86)
--- NOTE | 2021-08-10 07:42 | RAD REPORT ---
EXAM DESCRIPTION: RAD - Ankle Right 3 View - 08/10/2021 5:54 am CLINICAL HISTORY: ankle pain/swelling COMPARISON: No comparisons FINDINGS/IMPRESSION: No acute fracture. No malalignment. No significant focal degenerative changes.
[2021-08-10] MEDS: NICOTINE 21 MG/PAT TD SCH (09:00)
[2021-08-10] MEDS: FLUTICASONE 50MCG NASAL SPRAY NAS SCH (09:00)
[2021-08-10] MEDS: INSULIN -REGULAR HUMAN 50 UNIT/0.5 ML ML SQ SCH ×2 (09:01→11:30)
--- NOTE | 2021-08-10 10:10 | P.DS ---
Admission Date: 08/06/21 Discharge Date: 08/10/21 Disposition: ROUTINE DISCHARGE Discharge Condition: GOOD Reason for Admission: GIB - Problems (1) Anemia Current Visit: Yes Status: Acute (2) COPD (chronic obstructive pulmonary disease) Current Visit: Yes Status: Acute (3) Gastrointestinal bleed Current Visit: Yes Status: Acute Hospital Course: Patient is a 61 year old female with chronic bronchitis who presented with shortness of breath. She was found to have a low Hb. GI was consulted for endoscopic evaluation which was negative. No blood transfusion was required. She was able to maintain her Hb at 7.9 for the last 2 days. TTE was unremarkable for the most part except mild mitral stenosis. 1 episode of bradycardia. Lowest heart rate was in the high 40s, 49 to be exact. She was asymptomatic. Daughter was very concerned. I had consulted cardiology. Patient will need to be seen by cardiology Monday morning which is a few days from now. She is not on any beta-marisa or calcium channel blockers. Vital Signs/Physical Exam: Temp Pulse Resp BP Pulse Ox 96.9 F 51 20 135/76 100 08/10/21 08:00 08/10/21 08:00 08/10/21 08:00 08/10/21 08:00 08/10/21 08:00 General: Alert, In no apparent distress HEENT: Atraumatic, Normocephalic, Other (hoarse) Respiratory: Clear to auscultation bilaterally, Normal air movement Cardiovascular: No edema, Regular rate/rhythm, Normal S1 S2 Neurological: Normal speech, Normal affect Laboratory Data at Discharge: WBC 6.30 K/uL (4.3-10.9) 08/10/21 05:22 Hgb 7.9 g/dL (12.0-15.0) L 08/10/21 05:22 Hct 24.4 % (36.0-45.0) L 08/10/21 05:22 Plt Count 397 K/uL (152-406) 08/10/21 05:22 PT 12.6 SECONDS (9.5-12.5) H 08/07/21 05:35 INR 1.09 08/07/21 05:35 APTT 30.4 SECONDS (24.3-36.9) 08/07/21 05:35 Sodium 137 mmol/L (136-145) 08/08/21 05:40 Potassium 4.3 mmol/L (3.5-5.1) 08/08/21 05:40 BUN 9 mg/dL (7-18) 08/08/21 05:40 Creatinine 0.67 mg/dL (0.55-1.3) 08/08/21 05:40 Glucose 254 mg/dL (74-106) H 08/08/21 05:40 Magnesium 2.9 mg/dL (1.8-2.4) H D 08/08/21 05:40 Total Bilirubin 0.3 mg/dL (0.2-1.0) 08/08/21 05:40 AST 20 U/L (15-37) 08/08/21 05:40 ALT 31 U/L (12-78) 08/08/21 05:40 Alkaline Phosphatase 117 U/L (45-117) 08/08/21 05:40 Home Medications: Aspirin [Aspirin EC 81 MG] 81 mg PO DAILY 08/06/21 Atorvastatin Calcium [Lipitor] 40 mg PO BEDTIME 08/06/21 Insulin Detemir [Levemir] 25 unit SQ BEDTIME 08/06/21 Insulin Lispro [Humalog] 30 unit SQ DAILY 08/06/21 Metformin HCl [Metformin ER Osmotic] 1,000 mg PO BEDTIME 08/06/21 Sertraline [Zoloft*] 25 mg PO DAILY 08/06/21 Ropinirole HCl [Requip] 0.25 mg PO DAILY 08/10/21 Followup: Gasper Wilhelm MD [ASSOCIATE-ACTIVE - CAN ADMIT] - (Call to schedule appointment.) Jameel Andersen NP [Primary Care Provider] - (Call to schedule appointment)
[2021-08-10 13:34] VITALS: O2SAT 99
[2021-08-10 13:39] VITALS: BP 116/70; TEMP 96.7
--- NOTE | 2021-08-10 17:41 | EKG ---
Test Date: 2021-08-10 Test Time: 10:56:32 Field Attendant: MONIKA MEASUREMENT RESULTS: Intervals: Rate: 48 MI: 138 QRSD: 70 QT: 470 QTc: 419 [place]: P: 72 MI: 138 QRS: 9 T: 49 INTERPRETIVE STATEMENTS: Marked sinus bradycardia with marked sinus arrhythmia ST abnormality, possible digitalis effect Abnormal ECG Compared to ECG 08/05/2021 22:39:48 Sinus rhythm no longer present Prolonged QT interval no longer present ST (T wave) deviation still present Electronically Signed On 08-10-21 17:40:19 ELL TUTOR by Uriah Tam
--- NOTE | 2021-08-10 18:09 | P.PN ---
Subjective Date of Service: 08/10/21 Chief Complaint: Anemia unexplained Subjective: Improving (She feels well. Small bowel series and colonoscopy were negative. Says she has HR in 40s and is to see cardiology.) Review of Systems 10-point ROS is otherwise unremarkable Cardiovascular: Other (bradycardia) Physical Examination - Vital Signs Temperature: 96.7 F Blood Pressure: 116/70 Pulse: 62 Respirations: 19 Pulse Ox (%): 99 - Physical Exam General: Alert, In no apparent distress, Oriented x3, Cooperative HEENT: Atraumatic, Normocephalic, PERRLA, EOMI Neck: Supple Respiratory: Normal air movement Cardiovascular: Normal pulses Gastrointestinal: Soft and benign (obese), No tenderness, No rebound, No guardin g Neurological: Normal speech, Normal strength at 5/5 x4 extr - Studies Medications List Reviewed: Yes Assessment And Plan - Current Problems (Diagnosis) (1) Anemia Status: Acute (2) Bradycardia Status: Acute - Plan REC: 1) outpatient pillcam 2) consider hematology consult 3) await cardiology assessment / Rx Physician Review Additional Text: Assessment Patient is a 61-year-old female with a past medical history of COPD currently admitted for evaluation of GI bleeding after she presented with shortness of breath and was found to be anemic. She has received 3 units of packed RBC. She has had an EGD and colonoscopy all of which failed to explain the reason for her bleeding. She is on PPI and IV fluids and her hemoglobin continues to trend down. Anemia, suspected GI bleeding COPD Hyperglycemia Plan: We will obtain orthostatic vitals Repeat hemoglobin tomorrow Continue telemetry monitoring Transfuse if hemoglobin is less than 7 GI is recommending a pill endoscopy as outpatient If her hemoglobin continues trending down, I will consider hematology consult Start insulin sliding scale for hyperglycemia Check hemoglobin A1c
== END 2021-08-10 16:20 | disposition home or self-care (01) | DRG 377 ==
LOC: ER 20:33 → ERHOLD 08-06 09:04 → 2ND 08-06 12:57
PROVIDERS: ADMIT Hospitalist; ATTEND Internal Medicine
PROC: 30233N1 Transfusion of Nonautologous Red Blood Cells into Peripheral Vein, Percutaneous Approach (ICD-10-PCS; 2021-08-06)
PROC: 0DB68ZX Excision of Stomach, Via Natural or Artificial Opening Endoscopic, Diagnostic (ICD-10-PCS; principal; 2021-08-06 18:00)
PROC: 0DJD8ZZ Inspection of Lower Intestinal Tract, Via Natural or Artificial Opening Endoscopic (ICD-10-PCS; 2021-08-08)
DX: K29.71 Gastritis, unspecified, with bleeding (principal); J18.9 Pneumonia, unspecified organism; J44.0 Chronic obstructive pulmonary disease with (acute) lower respiratory infection; J44.1 Chronic obstructive pulmonary disease with (acute) exacerbation; E11.65 Type 2 diabetes mellitus with hyperglycemia; K52.9 Noninfective gastroenteritis and colitis, unspecified; D64.9 Anemia, unspecified; G25.81 Restless legs syndrome; E78.5 Hyperlipidemia, unspecified; K64.8 Other hemorrhoids; I05.0 Rheumatic mitral stenosis; K57.90 Diverticulosis of intestine, part unspecified, without perforation or abscess without bleeding; J40 Bronchitis, not specified as acute or chronic; F17.210 Nicotine dependence, cigarettes, uncomplicated; R00.1 Bradycardia, unspecified; Z79.4 Long term (current) use of insulin; Z79.84 Long term (current) use of oral hypoglycemic drugs; Z79.82 Long term (current) use of aspirin; Z90.49 Acquired absence of other specified parts of digestive tract; Z79.899 Other long term (current) drug therapy; Z20.822 Contact with and (suspected) exposure to COVID-19
CPT/HCPCS: 0240U; 36415; 71045; 71275; 74177; 74250; 80048; 80053; 80076; 81003; 82805; 82947; 83036; 83605; 83735; 83880; 84145; 84439; 84443; 84484; 85014; 85018; 85025; 85379; 85610; 85730; 86850; 86900; 86901; 87040; 88305; 88312; 93005; 93306; 94640; 96360; 96361; 99285; C9113; J0171; J1940; J2270; J2704; J2765; J2920; J2930; J7030; J7040; J7050; P9016; Q9967

== ENCOUNTER 2021-12-28 09:42 | Observation (INO) | payer BC ==
--- OUTSIDE RECORDS SUMMARY | 2021-12-28 09:46 | XMS REPORT | Continuity of Care Document ---
:1960 Author Organization [facility] t Address [address] [place] [address] Care Team Providers Name Role Phone Nathaly [...] Date/Time Type Type Clinicians Facility Department ID 2021-09-29 Outpatient Andersen, [facility] [id number] Common 10:44:00 Avnee [facility] 2021-08-12 Outpatient Andersen [facility] [id number] Common 10:02:00 Avnee [facility] 2021-08-11 Outpatient Andersen [facility] [id number] Common 09:32:00 Avnee [facility] 2021-08-04 Outpatient Andersen [facility] [id number] Common 14:08:55 Avnee [id number] [facility] 2021-08-04 Outpatient Andersen, [facility] [id number] Common 13:44:30 Avnee [id number] [facility] 2021-08-04 Outpatient Andersen, [facility] [id number] Common 13:34:50 Avnee [id number] [facility] 2021-08-04 Outpatient Andersen, [facility] [id number] Common 13:34:13 Avnee [id number] [facility] 2021-08-04 Outpatient Andersen, [facility] [id number] Common 13:33:41 Avnee [id number] [facility] 2021-08-04 Outpatient Andersen, [facility] [id number] Common 13:23:42 Avnee [id number] [facility] 2021-08-04 Outpatient [place], [facility] [id number] Common 13:14:40 Shannon [id number] [facility] 2021-08-04 Outpatient [facility] [id number] Common 12:11:30 [id number] [facility] 2021-08-04 Outpatient Millender, [facility] [id number] Common 11:48:14 Damaris [id number] [facility] 2021-08-04 Outpatient Millender, [facility] [id number] Common 11:24:09 Damaris [id number] [facility] 2021-08-04 Outpatient Millender, [facility] [id number] Common 11:09:23 Damaris [id number] [facility] 2021-08-04 Outpatient Millender, [facility] [id number] Common 10:57:58 Damaris [id number] [facility] 2021-12-24 2021-12-24 ambulatory [facility] [id number] Common 00:00:00 00:00:00 [facility] 2021-12-15 2021-12-15 ambulatory [facility] [id number] Common 00:00:00 00:00:00 [facility] 2021-10-22 2021-10-22 ambulatory [facility] [id number] Common 00:00:00 00:00:00 [facility] 2021-10-22 2021-10-22 ambulatory [facility] [id number] Common 00:00:00 00:00:00 [facility] 2021-10-15 2021-10-15 ambulatory [facility] [id number] Common 00:00:00 00:00:00 [facility] 2021-09-23 2021-09-23 ambulatory [facility] [id number] Common 00:00:00 00:00:00 [facility] 2021-09-09 2021-09-09 ambulatory [facility] [id number] Common 00:00:00 00:00:00 [facility] 2021-09-08 2021-09-08 ambulatory [facility] [id number] Common 00:00:00 00:00:00 [facility] 2021-09-03 2021-09-03 ambulatory [facility] [id number] Common 00:00:00 00:00:00 [facility] 2021-08-23 2021-08-23 ambulatory [facility] [id number] Common 00:00:00 00:00:00 [facility] 2021-08-13 2021-08-13 ambulatory [facility] [id number] Common 00:00:00 00:00:00 [facility] 2021-08-06 2021-08-06 ambulatory [facility] [id number] Common 00:00:00 00:00:00 [facility] 2021-07-30 2021-07-30 ambulatory [facility] [id number] Common 00:00:00 00:00:00 [facility] 2021-07-30 2021-07-30 ambulatory [facility] [id number] Common 00:00:00 00:00:00 [facility] 2021-07-29 2021-07-29 ambulatory [facility] [id number] Common 00:00:00 00:00:00 [facility] 2021-07-29 2021-07-29 ambulatory [facility] [id number] Common 00:00:00 00:00:00 [facility] 2021-07-22 2021-07-22 ambulatory [facility] [id number] Common 00:00:00 00:00:00 [facility] 2021-07-12 2021-07-12 ambulatory [facility] [id number] Common 00:00:00 00:00:00 [facility] 2021-06-28 2021-06-28 ambulatory [facility] [id number] Common 00:00:00 00:00:00 [facility] Results This patient has no known results.
--- NOTE | 2021-12-28 10:33 | EDPHYS ---
Physician Documentation [facility] Name: Yoly Vanessa Age: 61 yrs Sex: Female : 1960 Arrival Date: 12/28/2021 Time: 09:43 Bed 6 Private MD: TAZ DAILY ED Physician Abhi Hogue HPI: 12/28 10:21 This 61 yrs old Female presents to ER via Wheelchair with complaints of jackie Breathing Difficulty. 10:21 The patient has shortness of breath at rest. Onset: The symptoms/episode began/occurred jackie 3 day(s) ago. Duration: The symptoms are continuous, and are steadily getting worse. The patient's shortness of breath is aggravated by coughing, exertion, light activity, talking, is alleviated by nothing, rest, sitting up, application of supplemental oxygen. Associated signs and symptoms: Pertinent positives: non-productive cough. Severity of symptoms: At their worst the symptoms were moderate in the emergency department the symptoms are unchanged. The patient has experienced similar episodes in the past, multiple times. Historical: - Allergies: 09:57 No Known Allergies; iw - Home Meds: 11:55 ropinirole 0.5 mg oral tab [Active]; metformin 1,000 mg oral tab [Active]; atorvastatin jl7 40 mg oral tab once daily [Active]; Humalog U-100 Insulin 100 unit/mL Sub-Q crtg [Active]; - PMHx: 09:57 COPD; Diabetes - IDDM; High Cholesterol; restless leg; Anemia; iw - Immunization history:: Client reports having NOT received the Covid vaccine. - Social history:: Smoking status: Patient reports the use of cigarette tobacco products. ROS: 10:22 Constitutional: Negative for fever, chills, and weight loss, Eyes: Negative for injury, jackie pain, redness, and discharge, ENT: Negative for injury, pain, and discharge, Neck: Negative for injury, pain, and swelling, Abdomen/GI: Negative for abdominal pain, nausea, vomiting, diarrhea, and constipation, Back: Negative for injury and pain, : Negative for injury, bleeding, discharge, and swelling, MS/Extremity: Negative for injury and deformity, Neuro: Negative for headache, weakness, numbness, tingling, and seizure, Psych: Negative for depression, anxiety, suicide ideation, homicidal ideation, and hallucinations, Allergy/Immunology: Negative for hives, rash, and allergies, Endocrine: Negative for neck swelling, polydipsia, polyuria, polyphagia, and marked weight changes, Hematologic/Lymphatic: Negative for swollen nodes, abnormal bleeding, and unusual bruising. 10:22 Cardiovascular: Positive for orthopnea, palpitations. 10:22 Respiratory: Positive for cough, shortness of breath, wheezing, inspiratory, expiratory. 10:22 Abdomen/GI: 10:22 Skin: Positive for pallor. 10:24 Cardiovascular: Positive for jackie 10:24 MS/extremity: Negative for decreased range of motion, pain, swelling, tenderness. Exam: 10:24 Head/Face: Normocephalic, atraumatic. Eyes: Pupils equal round and reactive to light, jackie extra-ocular motions intact. Lids and lashes normal. Conjunctiva and sclera are non-icteric and not injected. Cornea within normal limits. Periorbital areas with no swelling, redness, or edema. ENT: Nares patent. No nasal discharge, no septal abnormalities noted. Tympanic membranes are normal and external auditory canals are clear. Oropharynx with no redness, swelling, or masses, exudates, or evidence of obstruction, uvula midline. Mucous membranes moist. Neck: Trachea midline, no thyromegaly or masses palpated, and no cervical lymphadenopathy. Supple, full range of motion without nuchal rigidity, or vertebral point tenderness. No Meningismus. Chest/axilla: Normal chest wall appearance and motion. Nontender with no deformity. No lesions are appreciated. Abdomen/GI: Soft, non-tender, with normal bowel sounds. No distension or tympany. No guarding or rebound. No evidence of tenderness throughout. Back: No spinal tenderness. No costovertebral tenderness. Full range of motion. Female : Normal external genitalia. MS/ Extremity: Pulses equal, no cyanosis. Neurovascular intact. Full, normal range of motion. Neuro: Awake and alert, GCS 15, oriented to person, place, time, and situation. Cranial nerves II-XII grossly intact. Motor strength 5/5 in all extremities. Sensory grossly intact. Cerebellar exam normal. Normal gait. Psych: Awake, alert, with orientation to person, place and time. Behavior, mood, and affect are within normal limits. 10:24 Constitutional: The patient appears anxious, obviously ill, uncomfortable. 10:24 Cardiovascular: Rate: tachycardic, actual rate is 105 bpm, Rhythm: regular, Pulses: Pulses are 4+ in bilateral radial, brachial, femoral, popliteal, posterior tibial and and dorsalis pedis arteries.. Heart sounds: normal, Edema: is not appreciated, JVD: is not appreciated. 10:24 Respiratory: mild respiratory distress is noted, moderate respiratory distress is noted, Respirations: labored breathing, that is mild, that is moderate, Breath sounds: bronchial sounds, that are mild, decreased breath sounds, that are mild, rhonchi, that are mild, stridor, is not appreciated, + upper airway congestion. wheezing: inspiratory expiratory Respiratory rate: 28 10:56 ECG was reviewed by the Attending Physician. jackie 11:26 Abdomen/GI: Rectal exam: is unremarkable, rectal tone normal, Stool: guaiac positive, jackie trace positive, no melena, hemorrhoid(s), are not appreciated, mass, is not appreciated, swelling, is not appreciated, tenderness, that is mild, fecal impaction, is not appreciated, Liver: no appreciated palpable abnormalities, Hernia: not appreciated. Vital Signs: 09:55 BP 148 / 99; Pulse 105; Resp 28 S; Temp 98.3; Pulse Ox 96% on R/A; iw 10:45 BP 142 / 85; Pulse 98; Resp 25; Pulse Ox 96% ; jl7 11:47 BP 144 / 87; Pulse 97; Resp 24; Pulse Ox 96% on Nebulizer Mask; jl7 MDM: 09:46 Patient medically screened. jackie 10:27 Differential diagnosis: Anemia Bronchitis CHF exacerbation, Chronic Obstructive jackie Pulmonary Disease pulmonary edema, reactive airway disease, Sepsis. Antibiotic administration: Rocephin and Zithromax given. Differential Diagnosis sepsis. The patient's Wells Deep Vein Thrombosis Score was calculated as follows: Heart Rate >100 BPM (1.5 Pts) Total Score: 0-2 Pts- Low Risk. The patient's pulmonary embolism risk score was calculated as follows: Total Score: 0-2 points. This patient was found to be at low risk for a pulmonary embolism by using the Well's assessment criteria. Immunization status: Influenza vaccine: Data reviewed: vital signs, nurses notes, lab test result(s), EKG, radiologic studies, plain films. Data interpreted: night monitor: rate is 28 beats/min, rhythm is regular, Pulse oximetry: on room air is 96 %. Counseling: I had a detailed discussion with the patient and/or guardian regarding: the historical points, exam findings, and any diagnostic results supporting the discharge/admit diagnosis, lab results, radiology results, the need for further work-up and treatment in the hospital. 12/28 10:08 Order name: Basic Metabolic Panel; Complete Time: 11:16 12/28 10:08 Order name: CBC with Diff; Complete Time: 11:16 12/28 10:08 Order name: Troponin HS; Complete Time: 11:16 12/28 10:08 Order name: Type And Screen 12/28 10:22 Order name: Bb Add On 12/28 10:28 Order name: Packed RBC Leukored [facility] 12/28 10:30 Order name: Blood Culture Adult (2) [facility] 12/28 10:30 Order name: Lactate [facility] 12/28 10:31 Order name: Retic Count; Complete Time: 11:16 [facility] 12/28 10:31 Order name: B12 [facility] 12/28 10:31 Order name: Folic Acid,Serum (folate) [facility] 12/28 10:31 Order name: TIBC [facility] 12/28 10:31 Order name: Ferritin [facility] 12/28 10:46 Order name: ABG 12/28 10:08 Order name: XRAY Chest (1 view); Complete Time: 11:16 12/28 10:53 Order name: SARS-COV-2 RT PCR (Document "Date of Onset" if Symptomatic) [facility] 12/28 11:18 Order name: Folic Acid, RBC [facility] 12/28 11:18 Order name: Vitamin B12 Level [facility] 12/28 11:18 Order name: CBC with Automated Diff [facility] 12/28 11:18 Order name: CBC with Automated Diff [facility] 12/28 11:18 Order name: Comprehensive Metabolic Panel [facility] 12/28 11:18 Order name: Comprehensive Metabolic Panel [facility] 12/28 11:21 Order name: Lactic Dehydrogenase [facility] 12/28 11:31 Order name: Antibody Identification [facility] 12/28 13:01 Order name: Antigen type [facility] 12/28 10:08 Order name: EKG; Complete Time: 10:09 12/28 10:08 Order name: Cardiac monitoring; Complete Time: 11:41 12/28 10:08 Order name: EKG - Nurse/Tech; Complete Time: 11: iw 12/28 10:08 Order name: IV Saline Lock; Complete Time: : iw 12/28 10:08 Order name: Labs collected and sent; Complete Time: iw 12/28 10:08 Order name: O2 Per Protocol; Complete Time: 11: iw 12/28 10:08 Order name: O2 Sat Monitoring; Complete Time: : iw 12/28 10:20 Order name: IV - Large Bore; Complete Time: 11: jackie 12/28 11:18 Order name: 60g Consistent Carbohydrate (ADA 1800/2000) EDMS EC:56 Rate is 99 beats/min. Rhythm is regular. QRS [place] is Normal. [place] interval is normal. QRS jackie interval is normal. QT interval is normal. No Q waves. T waves are Normal. No ST changes noted. Clinical impression: NSR w/ Non-specific ST/T Changes and No evidence of ischemia. Interpreted by me. Reviewed by me. Administered Medications: 11:00 Drug: ProTONIX (pantoprazole) 40 mg Route: IVP; Site: right forearm; jl7 11:44 Follow up: Response: No adverse reaction jl7 11:00 Drug: SOLU-Medrol (methylPrednisoLONE) 125 mg Route: IVP; Site: right forearm; jl7 11:44 Follow up: Response: No adverse reaction jl7 11:20 Drug: Xopenex (levalbuterol) 3.75 mg Route: Inhalation; jl7 11:43 Follow up: Response: No adverse reaction jl7 11:30 Drug: Rocephin (cefTRIAXone) 1 grams Route: IV; Rate: per protocol; Site: right forearm;jl7 11:33 Follow up: Response: No adverse reaction; IV Status: Completed infusion jl7 11:40 Drug: Zithromax (azithromycin) 500 mg Route: IVPB; Infused Over: 1 hrs; Site: left jl7 forearm; 12:40 Follow up: Response: No adverse reaction; IV Status: Completed infusion; IV Intake: jl7 250ml 11:40 Drug: Zofran (Ondansetron) 4 mg Route: IVP; Site: right forearm; jl7 12:00 Follow up: Response: No adverse reaction; Nausea is decreased jl7 11:41 Not Given (Physician Discretion): Atropine 0.5 mg IVP once jl7 11:41 Drug: AtroVENT (ipratropium) Aerosol 0.5 mg Route: Inhalation; jl7 12:00 Follow up: Response: No adverse reaction jl7 Disposition Summary: 12/28/21 10:32 Hospitalization Ordered Hospitalization Status: Inpatient Admission jackie Provider: Gosia Santana cha Location: Telemetry/MedSurg (Inpatient) jackie Condition: Fair jackie Problem: new jackie Symptoms: have improved jackie Bed/Room Type: Standard jackie Room Assignment: 216(12/28/21 12:08) dw Diagnosis - COPD/ Chronic obstructive pulmonary disease with (acute) exacerbation jackie - Anemia, unspecified jackie - Dyspnea jackie - Tobacco use jackie - Type 1 diabetes mellitus with hyperglycemia jackie Forms: - Medication Reconciliation Form ajckie - SBAR form jackie Signatures: Dispatcher [employer] Joy Gamez RN RN dw Anderson, Corey, MD MD cha Williams, Irene, RN RN iw Leal, Jahala, RN RN jl7 Corrections: (The following items were deleted from the chart) 12:08 10:32 jackie dw
--- NOTE | 2021-12-28 10:33 | ER ---
Nurse's Notes 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 Coronavirus screen: Client presents with at least one sign or symptom that may indicate coronavirus-19. Ebola Screen: Patient negative for fever greater than or equal to 101.5 degrees Fahrenheit, and additional compatible Ebola Virus Disease symptoms Patient denies exposure to infectious person. Patient denies travel to an Ebola-affected area in the 21 days before illness onset. No symptoms or risks identified at this time. 09:55 Method Of Arrival: Wheelchair iw 09:57 Initial Sepsis Screen: Does the patient meet any 2 criteria? RR > 20 per min. HR > 90 iw bpm. Does the patient have a suspected source of infection? No. Patient's initial sepsis screen is negative. Risk Assessment: Do you want to hurt yourself or someone else? Patient reports no desire to harm self or others. Onset of symptoms was December 08, 2021. 09:57 Acuity: MEHDI 3 iw Historical: - Allergies: 09:57 No Known Allergies; iw - Home Meds: 11:55 ropinirole 0.5 mg oral tab [Active]; metformin 1,000 mg oral tab [Active]; atorvastatin jl7 40 mg oral tab once daily [Active]; Humalog U-100 Insulin 100 unit/mL Sub-Q crtg [Active]; - PMHx: 09:57 COPD; Diabetes - IDDM; High Cholesterol; restless leg; Anemia; iw - Immunization history:: Client reports having NOT received the Covid vaccine. - Social history:: Smoking status: Patient reports the use of cigarette tobacco products. Screenin:45 Abuse screen: Denies threats or abuse. Denies injuries from another. Nutritional jl7 screening: No deficits noted. Tuberculosis screening: No symptoms or risk factors identified. Fall Risk IV access (20 points). Total Nicholson Fall Scale indicates No Risk (0-24 pts). Assessment: 10:00 General: Appears distressed, uncomfortable, Behavior is calm, cooperative, appropriate jl7 for age. Pain: Denies pain. Neuro: Level of Consciousness is awake, alert, obeys commands, Oriented to person, place, time, situation. Cardiovascular: Heart tones present Rhythm is sinus tachycardia. Respiratory: Airway is patent Respiratory effort is even, labored, using tripod position, Respiratory pattern is symmetrical, tachypnea Breath sounds are coarse Breath sounds with wheezes. Derm: Skin is dry, Skin is pale, Skin temperature is warm. 11:30 Reassessment: Patient appears in no apparent distress at this time. No changes from jl7 previously documented assessment. Patient and/or family updated on plan of care and expected duration. Pain level reassessed. Patient is alert, oriented x 3, equal unlabored respirations, skin warm/dry/pink. 12:20 Reassessment: Attempted to call report, nurse unavailable. jl7 12:30 Reassessment: Patient appears in no apparent distress at this time. No changes from jl7 previously documented assessment. Patient and/or family updated on plan of care and expected duration. Pain level reassessed. Patient is alert, oriented x 3, equal unlabored respirations, skin warm/dry/pink. 14:00 Reassessment: Attempted to call report, nurse unavailable. jl7 Vital Signs: 09:55 BP 148 / 99; Pulse 105; Resp 28 S; Temp 98.3; Pulse Ox 96% on R/A; iw 10:45 BP 142 / 85; Pulse 98; Resp 25; Pulse Ox 96% ; jl7 11:47 BP 144 / 87; Pulse 97; Resp 24; Pulse Ox 96% on Nebulizer Mask; jl7 ED Course: 09:43 Patient arrived in ED. am2 09:43 TAZ DAILY is Private Physician. am2 09:46 Abhi Hogue MD is Attending Physician. jackie 09:57 Triage completed. iw 09:58 Arm band placed on. iw 10:00 Patient has correct armband on for positive identification. Placed in gown. Bed in low jl7 position. Call light in reach. Side rails up X2. Client placed on continuous cardiac and pulse oximetry monitoring. NIBP monitoring applied. 10:07 Cathy Cabello, MOJGAN is Primary Nurse. [facility] 10:30 Initial lab(s) drawn, by or, sent to lab. Inserted saline lock: 20 gauge in right jl7 forearm, using aseptic technique. Blood collected. 10:30 First set of blood cultures drawn by me. EKG done, by ED staff, reviewed by Abhi Hogue MD. 10:31 Gosia Santana MD is Hospitalizing Provider. [facility] 10:47 XRAY Chest (1 view) In Process Unspecified. EDMS 11:20 Inserted saline lock: 20 gauge in left forearm, using aseptic technique. Blood jl7 collected. 11:24 Second set of blood cultures drawn by or. 7 11:47 COVID swab sent to lab. [facility] 14:00 Consent for blood and/or blood product transfusion explained by staff, explained by [facility] physician, signed by patient. 14:30 No provider procedures requiring assistance completed. Patient admitted, IV remains in jl7 place. intact, No redness/swelling at site. Administered Medications: 11:00 Drug: ProTONIX (pantoprazole) 40 mg Route: IVP; Site: right forearm; 7 11:44 Follow up: Response: No adverse reaction [facility] 11:00 Drug: SOLU-Medrol (methylPrednisoLONE) 125 mg Route: IVP; Site: right forearm; jl7 11:44 Follow up: Response: No adverse reaction [facility] 11:20 Drug: Xopenex (levalbuterol) 3.75 mg Route: Inhalation; jl7 11:43 Follow up: Response: No adverse reaction 7 11:30 Drug: Rocephin (cefTRIAXone) 1 grams Route: IV; Rate: per protocol; Site: right forearm;jl7 11:33 Follow up: Response: No adverse reaction; IV Status: Completed infusion jl7 11:40 Drug: Zithromax (azithromycin) 500 mg Route: IVPB; Infused Over: 1 hrs; Site: left jl forearm; 12:40 Follow up: Response: No adverse reaction; IV Status: Completed infusion; IV Intake: [facility] 250ml 11:40 Drug: Zofran (Ondansetron) 4 mg Route: IVP; Site: right forearm; jl7 12:00 Follow up: Response: No adverse reaction; Nausea is decreased jl7 11:41 Not Given (Physician Discretion): Atropine 0.5 mg IVP once jl7 11:41 Drug: AtroVENT (ipratropium) Aerosol 0.5 mg Route: Inhalation; jl7 12:00 Follow up: Response: No adverse reaction jl7 Medication: 10:45 VIS not applicable for this client. jl7 Intake: 12:40 IV: 250ml; Total: 250ml. jl7 Outcome: 10:32 Decision to Hospitalize by Provider. jackie 14:30 Admitted to Med/surg accompanied by tech, via stretcher, room 216, with chart, Report jl7 called to MOJGAN Akers 14:30 Condition: stable 14:30 Discharge instructions given to patient, Instructed on discharge instructions, Demonstrated understanding of instructions. 14:32 Patient left the ED. jl7 Signatures: Dispatcher [employer] EDAbhi Uribe MD MD cha Williams, Irene, RN Cathy Lui RN RN jl7 Moreno, Amanda am2 Corrections: (The following items were deleted from the chart) 11:55 11:47 BP 144 / 87; Pulse 97bpm; Resp 20bpm; Pulse Ox 96% Nebulizer Mask; jl7 jl7 11:55 10:45 BP 142 / 85; Pulse 98bpm; Resp 19bpm; Pulse Ox 96%; jl7 jl7
[2021-12-28 10:50] LABS: Absolute Lymphocytes (CBC) 0.8 K/uL (0.7-4.9); Hematocrit 19.2 % (36.0-45.0); Lymphocytes % 7.5 % (15.3-44.8); MPV 6.8 fL (7.6-11.3); RBC Red Blood Cell Count 2.64 M/uL (3.86-4.86)
[2021-12-28] MEDS ORDERED: METHYLPREDNISOLONE 125 MG INJ ONE (10:52)
[2021-12-28] MEDS ORDERED: ATROPINE SULF 1 MG/10 ML SYR IV ONE (10:53)
[2021-12-28] MEDS ORDERED: AZITHROMYCIN 500 MG INJ IVPB ONE (10:53)
[2021-12-28] MEDS ORDERED: NA CHLORIDE 0.9% 250 ML ONE ×2 (10:53→23:06)
[2021-12-28] MEDS ORDERED: CEFTRIAXONE 1000 MG/VIAL ONE (10:53)
[2021-12-28] MEDS ORDERED: PANTOPRAZOLE 40 MG INJ ONE (10:53)
[2021-12-28] MEDS ORDERED: LEVALBUTEROL 1.25 MG/3 ML NEB ONE (10:53)
[2021-12-28] MEDS ORDERED: NA CHLORIDE 0.9% 50 ML ONE (10:54)
[2021-12-28 10:59] LABS: RBC Red Blood Cell Count 2.62 M/uL (3.86-4.86)
--- NOTE | 2021-12-28 11:01 | RAD REPORT ---
EXAM DESCRIPTION: Cindy Single View12/28/2021 10:46 am CLINICAL HISTORY: COPD COMPARISON: July 2021 FINDINGS: The lungs are mildly to moderately hyperaerated. Mild chronic appearing interstitial lung opacities. The lungs appear clear of acute infiltrate. The heart is normal size IMPRESSION: No acute abnormalities displayed
[2021-12-28 11:03] LABS: Arterial Blood Carboxyhemoglob 4.3 % (0-1.5); Blood Gas Oxyhemoglobin 88.5 % (94-97); Blood O2 Saturation 93.7 % (92-98.5)
[2021-12-28 11:06] LABS: Potassium 4.1 mmol/L (3.5-5.1); Troponin High Sensitivity 12.9 pg/mL (<58.9)
--- NOTE | 2021-12-28 11:11 | P.HP ---
Certification for Inpatient With expected LOS: >2 Midnights Patient will require the following post-hospital care: None Practitioner: I am a practitioner with admitting privileges, knowledge of patient current condition, hospital course, and medical plan of care. Services: Services provided to patient in accordance with Admission requirements found in Title 42 Section 412.3 of the Code of Federal Regulations Patient History Date of Service: 12/28/21 Reason for admission: Weakness, cough, shortness of breath History of Present Illness: 61-year-old female with past medical history of COPD, chronic tobacco use, diabetes mellitus, obesity, HLD, history of chronic anemia status post PRBC 3 months ago after potential for anemia. Patient had EGD and colonoscopy which were reportedly negative at the time. She has been following with hematologistDr. Coronado started on iron tablets pending further work-up. She presented to the after being brought by son because of increasing cough, shortness of breath since 1 week with significant exertional fatigue as well as new onset dizziness and lightheadedness this morning. She denies any sick contacts. She denies any sputum production. She denies any fever or chills. 6 she denies any COVID contact. She will receive the COVID vaccines x1 dose. She is unsure of which type. On arrival in the emergency room she was noted to have tachycardia with rate of 105 beats per minutes, tachypnea which rate up to 35, chest x-ray shows no acute infiltrate. EKG shows sinus tach with no ST segment changes. There was mild LVH strain pattern. WBC was normal at 10.4, hemoglobin was noted 5.9 with hematocrit of 19. She has been admitted for symptomatic anemia. Further work-up pending Allergies No Known Allergies Allergy (Unverified 08/06/21 04:50) Home medications list reviewed: Yes Home Medications: Aspirin [Aspirin EC 81 MG] 81 mg PO DAILY 08/06/21 Atorvastatin Calcium [Lipitor] 40 mg PO BEDTIME 08/06/21 Insulin Detemir [Levemir] 25 unit SQ BEDTIME 08/06/21 Insulin Lispro [Humalog] 30 unit SQ DAILY 08/06/21 Metformin HCl [Metformin ER Osmotic] 1,000 mg PO BEDTIME 08/06/21 Sertraline [Zoloft*] 25 mg PO DAILY 08/06/21 Ropinirole HCl [Requip] 0.25 mg PO DAILY 08/10/21 - Past Medical/Surgical History Diabetic: Yes -: COPD -: Diabetes -: Hyperlipidemia -: Restless leg syndrome -: Anemia -: Cholecystectomy -: - Social History Smoking Status: Light Tobacco smoker (1-9 cigarettes/day) Counseled patient to stop smoking for: less than 10 minutes Smoking therapy provided: No Patient receptive to therapy: No Alcohol use: No CD- Drugs: No Place of Residence: Home Review of Systems General: Weakness, Malaise Respiratory: Cough, Dry Cardiovascular: Light Headedness Physical Examination - Physical Exam General: Alert, In no apparent distress, Oriented x3, Obese HEENT: Atraumatic, Normocephalic, Other (Zeferino conjunctiva pallor) Neck: Supple, 2+ carotid pulse no bruit, JVD not distended Respiratory: Clear to auscultation bilaterally, Normal air movement Cardiovascular: No edema, Normal pulses, Regular rate/rhythm, Normal S1 S2 Gastrointestinal: Normal bowel sounds, Soft and benign, Non-distended Musculoskeletal: No clubbing, No swelling Integumentary: No rashes, No breakdown Neurological: Normal gait, Normal speech, Normal strength at 5/5 x4 extr, Normal tone, Cranial nerves 3-12 intact - Studies Laboratory Data (last 24 hrs) 12/28/21 10:33: WBC 10.4, Hgb 5.9 L*, Hct 19.2 L*, Plt Count 501 H Assessment and Plan - Advance Directives Does patient have a Living Will: No Does patient have a Durable POA for Healthcare: No - Code Status/Comfort Care Code Status Assessed: Yes Code Status: Full Code Physician Review: Patient Assessed, Agree with Above Assessment and Plan Physician Review Additional Text: Impression Symptomatic anemia History of chronic anemiaof unknown etiology, GI bleed previously ruled out COPD exacerbationmild Hypertension Diabetes mellitus Restless leg syndromemay be due to iron deficiency anemia HLD Chronic tobacco use Plan We will admit patient to inpatient status Will obtain iron profile We will dose PRBC 2 units for now, target hemoglobin of greater than 8 since underlying COPD Replete iron if low Previous extensive work-up including elevated erythropoietin level/normal S PEP/mildly elevated haptoglobin level, no iron profile in the past, will obtain Strict glycemic control Continue home hypoglycemic regimen Insulin sliding scale with Accu-Chek Resume home blood pressure medication, avoid ACEI since unexplained anemia to minimize risk of bowel suppression Hold off anticoagulation SCDs for DVT prophylaxis DuoNebs as needed, although tachypneic. Due to evidence of COPD exacerbation Continue home Symbicort Disposition possible hospital stay for 2 to 3 days Full code
[2021-12-28] MEDS ORDERED: MORPHINE 2 MG/ML SYR IV PRN (11:14)
[2021-12-28] MEDS ORDERED: ONDANSETRON 4 MG/2 ML VIAL IV PRN (11:14)
[2021-12-28] MEDS ORDERED: ACETAMINOPHEN 500 MG TAB PO PRN (11:14)
[2021-12-28] MEDS ORDERED: LORAZEPAM 0.5 MG TABLET PO PRN (11:16)
[2021-12-28] MEDS ORDERED: BENZONATATE 100 MG CAP PO PRN (11:16)
[2021-12-28] MEDS: INSULIN -REGULAR HUMAN 50 UNIT/0.5 ML ML SQ SCH ×3 (11:30→21:15)
[2021-12-28 11:32] LABS: Ferritin 6.9 ng/mL (8-388); Folic Acid, (Folate) > 20.0 ng/mL (3.1-17.5); Transferrin 310 mg/dL (200-360)
[2021-12-28] MEDS: ALBUTEROL 2.5 MG/3 ML NEB SOL NEB SCH ×3 (12:00→20:00)
[2021-12-28] MEDS: IPRATROPIUM BROM 0.5MG/2.5ML NEB SCH ×3 (12:00→20:00)
[2021-12-28 15:15] VITALS: BMI 34.9
[2021-12-28] MEDS: GUAIFENESIN 600 MG SA TAB PO SCH ×2 (15:27→21:14)
[2021-12-28] MEDS: NA CHLORIDE 0.9% 1,000 ML IV SCH (15:27)
[2021-12-28 18:12] LABS: Urine Appearance Clear (Clear); Urine Bilirubin Negative (Negative); Urine Blood Negative (Negative); Urine Color Yellow (Yellow); Urine Glucose 3+ (Negative); Urine Protein Negative (Negative); Urine Specific Gravity 1.015 (1.005-1.030); Urine Urobilinogen 0.2 mg/dL (0.2-1.0)
[2021-12-28 18:15] LABS: Urine Microscopic Reflex NO UMIC
[2021-12-28] MEDS ORDERED: ATORVASTATIN 40 MG TAB PO SCH (21:00)
[2021-12-28] MEDS ORDERED: METFORMIN ER 500 MG TAB PO SCH (21:00)
[2021-12-28] MEDS ORDERED: INSULIN GLARGINE 100 UNIT/ML SQ SCH (21:00)
[2021-12-28] MEDS: predniSONE 20 MG TAB PO SCH (21:14)
[2021-12-29] MEDS: NA CHLORIDE 0.9% 1,000 ML IV SCH ×2 (01:11→08:36)
[2021-12-29] MEDS: IPRATROPIUM BROM 0.5MG/2.5ML NEB SCH ×3 (01:35→14:22)
[2021-12-29] MEDS: ALBUTEROL 2.5 MG/3 ML NEB SOL NEB SCH ×3 (01:35→14:22)
[2021-12-29 05:40] LABS: Absolute Lymphocytes (CBC) 0.6 K/uL (0.7-4.9); Hematocrit 22.9 % (36.0-45.0); Lymphocytes % 5.8 % (15.3-44.8); MPV 7.1 fL (7.6-11.3); RBC Red Blood Cell Count 3.02 M/uL (3.86-4.86)
[2021-12-29 05:58] LABS: Albumin 3.3 g/dL (3.4-5.0); Bilirubin Total 0.6 mg/dL (0.2-1.0); Potassium 4.8 mmol/L (3.5-5.1); Protein, Total 6.7 g/dL (6.4-8.2)
--- NOTE | 2021-12-29 07:21 | EKG ---
Test Date: 2021-12-28 Test Time: 10:26:16 Aircraft Loadmaster Superintendent: KISHA MEASUREMENT RESULTS: Intervals: Rate: 99 AR: 160 QRSD: 70 QT: 372 QTc: 477 Crooks: P: 86 AR: 160 QRS: 59 T: 90 INTERPRETIVE STATEMENTS: Normal sinus rhythm Septal infarct, age undetermined ST & T wave abnormality, consider lateral ischemia Abnormal ECG Compared to ECG 08/10/2021 10:56:32 Myocardial infarct finding now present Possible ischemia now present Sinus bradycardia no longer present Sinus arrhythmia no longer present ST (T wave) deviation still present Electronically Signed On 12-29-21 07:17:40 CDT by Uriah Tam
[2021-12-29] MEDS: GUAIFENESIN 600 MG SA TAB PO SCH (08:32)
[2021-12-29] MEDS: predniSONE 20 MG TAB PO SCH (08:33)
[2021-12-29] MEDS: INSULIN -REGULAR HUMAN 50 UNIT/0.5 ML ML SQ SCH ×3 (08:35→15:56)
[2021-12-29 08:53] VITALS: O2SAT 96
[2021-12-29] MEDS ORDERED: SERTRALINE HCL 50 MG TAB PO SCH (09:00)
[2021-12-29] MEDS ORDERED: ASPIRIN EC 81 MG TAB PO SCH (09:00)
[2021-12-29] MEDS ORDERED: NICOTINE 21 MG/PAT TD SCH (09:00)
[2021-12-29] MEDS ORDERED: ROPINIROLE HCL 0.25 MG TAB PO SCH (09:00)
[2021-12-29 09:20] LABS: Hematocrit 24.1 % (36.0-45.0)
--- NOTE | 2021-12-29 13:30 | P.DS ---
Admission Date: 12/28/21 Discharge Date: 12/29/21 Disposition: ROUTINE DISCHARGE Discharge Condition: GOOD Reason for Admission: Weakness, cough, shortness of breath Brief History of Present Illness: 61-year-old female with past medical history of COPD, chronic tobacco use, diabetes mellitus, obesity, HLD, history of chronic anemia status post PRBC 3 months ago after potential for anemia. Patient had EGD and colonoscopy which were reportedly negative at the time. She has been following with hematologistDr. Coronado started on iron tablets pending further work-up. She presented to the after being brought by son because of increasing cough, shortness of breath since 1 week with significant exertional fatigue as well as new onset dizziness and lightheadedness this morning. She denies any sick contacts. She denies any sputum production. She denies any fever or chills. 6 she denies any COVID contact. She will receive the COVID vaccines x1 dose. She is unsure of which type. On arrival in the emergency room she was noted to have tachycardia with rate of 105 beats per minutes, tachypnea which rate up to 35, chest x-ray shows no acute infiltrate. EKG shows sinus tach with no ST segment changes. There was mild LVH strain pattern. WBC was normal at 10.4, hemoglobin was noted 5.9 with hematocrit of 19. She has been admitted for symptomatic anemia. Further work-up pending Hospital Course: Patient was transfused with 2 unit of PRBC and hemoglobin improved appropriately from 5.9 to 7.6. Had tachypnea, dizziness, and tachycardia significantly improved. Her blood pressure also normalized. Iron level shows significantly low iron of 2.5% saturation. Patient was started on IV iron with Ferrlecit to 50 mg x 1 dose. She will be started on maximal dose of oral elemental iron with ferrous gluconate 3 times a day in conjunction with ascorbic acid to aid absorption. Significant iron deficiency from presumed poor absorption may be causing patient chronic anemia. Recall patient had a EGD a colonoscopy that was reportedly normal and although she is supposed to follow GI for pill endoscopy but given guaiac negative examination no evidence of GI bleed suspected. Patient recommended to stop tobacco cessation. She was given nicotine patch. Patient also strongly advised on the need for iron intake compliance. - Physical Exam General: Alert, In no apparent distress, Oriented x3, Obese HEENT: Atraumatic, Normocephalic, flushed conjunctival now Neck: Supple, 2+ carotid pulse no bruit, JVD not distended Respiratory: Clear to auscultation bilaterally, Normal air movement Cardiovascular: No edema, Normal pulses, Regular rate/rhythm, Normal S1 S2 Gastrointestinal: Normal bowel sounds, Soft and benign, Non-distended Musculoskeletal: No clubbing, No swelling Integumentary: No rashes, No breakdown Neurological: Normal gait, Normal speech, Normal strength at 5/5 x4 extr, Normal tone, Cranial nerves 3-12 intact Vital Signs/Physical Exam: Temp Pulse Resp BP Pulse Ox 97.4 F 86 17 135/60 96 12/29/21 12:00 12/29/21 12:00 12/29/21 12:00 12/29/21 12:00 12/29/21 12:00 Laboratory Data at Discharge: WBC 10.4 K/uL (4.3-10.9) 12/29/21 05:22 Hgb 7.6 g/dL (12.0-15.0) L 12/29/21 09:05 Hct 24.1 % (36.0-45.0) L 12/29/21 09:05 Plt Count 402 K/uL (152-406) 12/29/21 05:22 Sodium 131 mmol/L (136-145) L 12/29/21 05:22 Potassium 4.8 mmol/L (3.5-5.1) 12/29/21 05:22 BUN 15 mg/dL (7-18) 12/29/21 05:22 Creatinine 0.86 mg/dL (0.55-1.3) 12/29/21 05:22 Glucose 252 mg/dL (74-106) H 12/29/21 05:22 Total Bilirubin 0.6 mg/dL (0.2-1.0) 12/29/21 05:22 AST 16 U/L (15-37) 12/29/21 05:22 ALT 30 U/L (12-78) 12/29/21 05:22 Alkaline Phosphatase 153 U/L (45-117) H 12/29/21 05:22 Home Medications: Atorvastatin Calcium [Lipitor] 40 mg PO BEDTIME 08/06/21 Insulin Detemir [Levemir] 25 unit SQ BEDTIME 08/06/21 Insulin Lispro [Humalog] 30 unit SQ DAILY 08/06/21 Metformin HCl [Metformin ER Osmotic] 1,000 mg PO BID 08/06/21 Sertraline [Zoloft*] 50 mg PO DAILY 08/06/21 Ropinirole HCl [Requip*] 0.25 mg PO DAILY 08/10/21 Omeprazole 20 mg PO [id number] 12/28/21 Ascorbic Acid [Vitamin C*] 500 mg PO BID #60 tablet 12/29/21 Ferrous Gluconate 324 mg PO TID #90 tablet 12/29/21 Nicotine [Nicoderm*] 21 mg TD DAILY #14 patch.td24 12/29/21 New Medications: Ferrous Gluconate 324 mg PO TID #90 tablet Nicotine [Nicoderm*] 21 mg TD DAILY #14 patch.td24 Ascorbic Acid [Vitamin C*] 500 mg PO BID #60 tablet Diet: ADA Activity: Ad fer Followup: Jameel Andersen SENIOR INTERACTIVE DEVELOPER [Primary Care Provider] - Time spent managing pt's care (in minutes): 35
--- NOTE | 2021-12-29 13:32 | P.PN ---
Subjective Date of Service: 12/29/21 Chief Complaint: Weakness, cough, shortness of breath Subjective: No new changes, No C/O voiced, Doing well Physical Examination - Vital Signs Temperature: 97.4 F Blood Pressure: 135/60 Pulse: 86 Respirations: 17 Pulse Ox (%): 96 Assessment And Plan Physician Review: Patient Assessed, Agree with Above Assessment and Plan Physician Review Additional Text: - Physical Exam General: Alert, In no apparent distress, Oriented x3, Obese HEENT: Atraumatic, Normocephalic, resolved conjunctiva pallor Neck: Supple, 2+ carotid pulse no bruit, JVD not distended Respiratory: Clear to auscultation bilaterally, Normal air movement Cardiovascular: No edema, Normal pulses, Regular rate/rhythm, Normal S1 S2 Gastrointestinal: Normal bowel sounds, Soft and benign, Non-distended Musculoskeletal: No clubbing, No swelling Integumentary: No rashes, No breakdown Neurological: Normal gait, Normal speech, Normal strength at 5/5 x4 extr, Normal tone, Cranial nerves 3-12 intact Impression Symptomatic anemia Severe iron deficiency anemia COPD exacerbationresolved Hypertension Diabetes mellitus Restless leg syndrome due to iron deficiency anemia HLD Chronic tobacco use Plan Will replete iron today Start IV iron loading If tolerating well, plan for discharge home with oral iron and ascorbic acid to aid with absorption Status post PRBC with improved hemoglobin appropriately to 7.6 Previous extensive work-up including elevated erythropoietin level/normal SPEP/mildly elevated haptoglobin level, no iron profile in the past, will obtain Strict glycemic control Continue home hypoglycemic regimen Insulin sliding scale with Accu-Chek Hold off anticoagulation SCDs for DVT prophylaxis Continue home Symbicort Possible discharge home today
[2021-12-29] MEDS ORDERED: SOD FERRIC GLUC COMPLX/SUCROSE 250 MG in NA CHLORIDE 0.9% 250 ML IV SCH (13:45)
[2021-12-29] MEDS ORDERED: FERROUS GLUCONATE 324 MG TAB PO SCH (17:00)
[2021-12-29 17:09] VITALS: BP 119/57; TEMP 97.9
[2021-12-30] MEDS ORDERED: ASCORBIC ACID 500 MG TABLET PO SCH (09:00)
== END 2021-12-29 18:00 | disposition home or self-care (01) ==
LOC: ER 09:42 → ERHOLD 12:07 → INTOOBSV 12:07 → 2ND 14:21
PROVIDERS: ADMIT Internal Medicine; ATTEND Internal Medicine
PROC: 30233N1 Transfusion of Nonautologous Red Blood Cells into Peripheral Vein, Percutaneous Approach (ICD-10-PCS; principal; 2021-12-28)
DX: D50.9 Iron deficiency anemia, unspecified (principal); J44.1 Chronic obstructive pulmonary disease with (acute) exacerbation; I10 Essential (primary) hypertension; E11.65 Type 2 diabetes mellitus with hyperglycemia; E78.5 Hyperlipidemia, unspecified; G25.81 Restless legs syndrome; F17.210 Nicotine dependence, cigarettes, uncomplicated; Z71.6 Tobacco abuse counseling; E66.9 Obesity, unspecified; Z68.34 Body mass index [BMI] 34.0-34.9, adult; Z79.82 Long term (current) use of aspirin; Z79.84 Long term (current) use of oral hypoglycemic drugs; Z79.899 Other long term (current) drug therapy; Z90.49 Acquired absence of other specified parts of digestive tract; Z20.822 Contact with and (suspected) exposure to COVID-19
CPT/HCPCS: 36430; 96365; 93005; 87040 ×2; 85025 ×2; 80048; 36415; 86900; 86850; 83615; 85044; 86902; 86870; 86901; 82947 ×5; 83605; 85018 ×2; 85014; 81003; 84484; 82728; 82746; 82607 ×2; 83540; 80053; 86922 ×2; 82747; 84466; 71045; 94640 ×3; 82805; 96375; 99285; U0003; J1815 ×5; J7512 ×2; C9113; J0456; P9016 ×2; J7050 ×2; J7030 ×2; J2930; J2405; G0378 ×3; J2916